=== PATIENT | male | born 1985 | race Caucasian/White ===

== ENCOUNTER 2016-12-04 12:42 | Inpatient (IN) | payer OTHER ==
[2016-12-04 13:43] VITALS: BMI 26.5
--- NOTE | 2016-12-04 16:40 | HP ---
CIWA Score - CIWA Score Nausea/Vomitin Muscle Tremors: 3 Anxiety: 3 Agitation: 3 Paroxysmal Sweats: 2 Orientation: 0-Oriented Tacttile Disturbances: 2-Mild Itch/Numbness/Burn Auditory Disturbances: 2-Mild Harshness/Frighten Visual Disturbances: 2-Mild Sensitivity Headache: 2-Mild CIWA-Ar Total Score: 22 Admission ROS BHS - HPI Chief Complaint: i need help to stop using xanax ,coaine,herroin dependence,mmtp 150 mgs/day, last medicated today Allergies/Adverse Reactions: Allergies Allergy/AdvReac Type Severity Reaction Status Date / Time No Known Allergies Allergy Verified 12/04/16 16:28 History of Present Illness: this 31 years old male with xanax and cocaine dependence,heroin dependence,mmtp 150 mgs/day,last mediated today,last detox [facility] in 2016 asthma hepatitis c weight loss longest period of sobriety 3 years - Ebola screening Have you traveled outside of the country in the last 21 days: No Have you had contact with anyone from an Ebola affected area: No Have you been sick,other than usual withdrawal symptoms: No Do you have a fever: No - Review of Systems Constitutional: See HPI, Chills, Loss of Appetite, Malaise, Night Sweats, Changes in sleep, Weakness, Unintentional Wgt. Loss EENT: reports: Tearing, Nose Congestion Respiratory: reports: No Symptoms reported, Other (asthma history) Cardiac: reports: No Symptoms Reported GI: reports: Diarrhea, Nausea, Vomiting, Abdominal cramping : reports: No Symptoms Reported Musculoskeletal: reports: Back Pain, Joint Pain, Muscle Pain, Joint Stiffness Integumentary: reports: Dryness Neuro: reports: Headache, Tremors Endocrine: reports: No Symptoms Reported Hematology: reports: No Symptoms Reported Psychiatric: reports: No Sypmtoms Reported, Judgement Intact, Mood/Affect Appropiate, Orientated x3 Patient History - Patient Medical History Hx Anemia: No Hx Asthma: Yes (childhood) Hx Chronic Obstructive Pulmonary Disease (COPD): No Hx Cancer: No Hx Cardiac Disorders: No Hx Congestive Heart Failure: No Hx Hypertension: No Hx Hypercholesterolemia: No Hx Pacemaker: No HX Cerebrovascular Accident: No Hx Seizures: No Hx Dementia: No Hx Diabetes: No Hx Gastrointestinal Disorders: No Hx Liver Disease: No Hx Genitourinary Disorders: No Hx Sexually Transmitted Disorders: No Hx Renal Disease (ESRD): No Hx Human Immunodeficiency Virus (HIV): No (last 2015) Hx Hepatitis C: Yes Hx Depression: No Hx Suicide Attempt: No Hx Bipolar Disorder: No Hx Schizophrenia: No Other Medical History: no suicidal,no homicidal - Patient Surgical History Past Surgical History: No - PPD History Previous Implant?: Yes Documented Results: Negative w/o proof Implanted On Prior [facility] Admission?: No PPD to be Administered?: Yes - Smoking Cessation Smoking history: Current every day smoker Have you smoked in the past 12 months: Yes Aproximately how many cigarettes per day: 10 Hx Chewing Tobacco Use: No Initiated information on smoking cessation: Yes 'Breaking Loose' booklet given: 12/05/16 - Substance & Tx. History Hx Alcohol Use: No Hx Substance Use: Yes Substance Use Type: Cocaine, Tranquilizers Hx Substance Use Treatment: Yes (last 2015) - Substances Abused Alprazolam (Xanax) Route: Oral Frequency: Daily Amount used: 4MG Age of first use: 17 Date of Last Use: 12/02/16 Cocaine Route: Injection Frequency: 3-6 times per week Amount used: $50-60 Age of first use: 17 Date of Last Use: 12/02/16 Heroin Route: Injection Frequency: 3-6 times per week Amount used: 4 Bags Age of first use: 17 Date of Last Use: 12/02/16 Family Disease History - Family Disease History Family History: Denies Admission Physical Exam BHS - Vital Signs Vital Signs: Vital Signs - 24 hr 12/04/16 13:23 Temperature 97.0 F L Pulse Rate 73 Respiratory 18 Rate Blood Pressure 100/73 - Physical General Appearance: Yes: Moderate Distress, Tremorous, Irritable, Sweating, Anxious HEENTM: Yes: Normal ENT Inspection, Normocephalic, ASHLEY Respiratory: Yes: Lungs Clear, Normal Breath Sounds, No Respiratory Distress Neck: Yes: Supple, Trachea in good position Breast: Yes: Within Normal Limits Cardiology: Yes: Within Normal Limits, Regular Rhythm, Regular Rate, S1, S2 Abdominal: Yes: Within Normal Limits, Normal Bowel Sounds, Non Tender, Flat, Soft Genitourinary: Yes: Within Normal Limits Back: Yes: Normal Inspection, Muscle Spasm Musculoskeletal: Yes: full range of Motion, Back pain, Joint Stiffness, Muscle Pain Extremities: Yes: Tremors Neurological: Yes: time clock inspector II-XII NML intact, Fully Oriented, Alert, Motor Strength 5/5 Integumentary: Yes: Dry Lymphatic: Yes: Within Normal Limits - Diagnostic (1) Uncomplicated sedative, hypnotic or anxiolytic withdrawal Current Visit: Yes Status: Acute (2) Cocaine dependence Current Visit: Yes Status: Acute (3) Heroin dependence Current Visit: Yes Status: Acute (4) Methadone maintenance therapy patient Current Visit: Yes Status: Acute (5) Asthma Current Visit: Yes Status: Acute (6) Hepatitis C Current Visit: Yes Status: Acute (7) Weight loss Current Visit: Yes Status: Acute Cleared for Admission S - Detox or Rehab S Level of Care: Medically Managed Detox Regimen/Protocol: Valium S Breath Alcohol Content Breath Alcohol Content: 0 Urine Drug Screen - Results Drug Screen Negative: No Urine Drug Screen Results: NICK-Cocaine, BZO-Benzodiazepines, MTD-Methadone, TCA- Tricyclic Antidepress
[2016-12-04] MEDS ORDERED: MENTHOL/PHENOL 1 EACH UD MM PRN (16:49)
[2016-12-04] MEDS ORDERED: NICOTINE POLACRILEX 2 MG GUM BC PRN (16:49)
[2016-12-04] MEDS ORDERED: MAGNESIUM CITRATE 300 ML BOTTLE PO PRN (16:49)
[2016-12-04] MEDS ORDERED: hydrOXYzine PAMOATE 50 MG CAPSULE (FP) PO PRN (16:49)
[2016-12-04] MEDS ORDERED: IBUPROFEN 400 MG TABLET (FP) PO PRN (16:49)
[2016-12-04] MEDS ORDERED: P-EPHED 60MG/TRIPROLIDI 2.5MG TABLET PO PRN (16:49)
[2016-12-04] MEDS ORDERED: ACETAMINOPHEN 325 MG TABLET (FP) PO PRN (16:49)
[2016-12-04] MEDS ORDERED: MAGNESIUM HYDROX 2400MG/30ML ORAL SUSPENSION 30 ML CUP PO PRN (16:49)
[2016-12-04] MEDS ORDERED: guaiFENesin/D-METHORPHAN HB 10 ML UNIT-DOSE CUPS PO PRN (16:49)
[2016-12-04] MEDS ORDERED: diazePAM 5 MG TABLET PO ONE (17:30)
[2016-12-04] MEDS: diazePAM 5 MG TABLET PO SCH (22:11)
[2016-12-04] MEDS: THIAMINE HCL 100 MG TABLET (FP) PO SCH (22:11)
[2016-12-04] MEDS: diphenhydrAMINE HCL 50 MG CAPSULE PO PRN (22:11)
[2016-12-05] MEDS: diazePAM 5 MG TABLET PO SCH ×3 (05:44→22:06)
[2016-12-05] MEDS ORDERED: METHADONE HCL 10 MG TABLET PO SCH (07:30)
[2016-12-05] MEDS ORDERED: METHADONE HCL 10 MG TABLET ONE (07:53)
[2016-12-05] MEDS ORDERED: METHADONE HCL 40 MG DISPERSABLE TABLET ONE (07:53)
[2016-12-05] MEDS: METHADONE 120 MG, METHADONE 30 MG PO SCH (07:56)
[2016-12-05 09:54] LABS: URINE APPEARANCE CLEAR; URINE BILIRUBIN NEGATIVE (NEGATIVE); URINE BLOOD NEGATIVE (NEGATIVE); URINE COLOR LTYELLOW; URINE GLUCOSE (UA) NEGATIVE (NEGATIVE); URINE KETONE NEGATIVE (NEGATIVE); URINE LEUK ESTERASE NEGATIVE (NEGATIVE); URINE NITRITE NEGATIVE (NEGATIVE); URINE PROTEIN NEGATIVE (NEGATIVE); URINE UROBILINOGEN NEGATIVE E.U./dl (0.2-1.0)
[2016-12-05 10:05] LABS: MCH 27.1 pg (25.7-33.7); MCHC 32.5 g/dl (32.0-35.9); MEAN CELL VOLUME 83.4 fl (80-96); MEAN PLT VOLUME 8.5 fl (7.5-11.1); PLATELET COUNT 194 K/MM3 (134-434); WHITE BLOOD COUNT 5.4 K/mm3 (4.0-10.0)
[2016-12-05] MEDS: PRENATAL VITAMINS W/ FOLIC ACID TABLET (FP) PO SCH (10:06)
[2016-12-05] MEDS: diazePAM 5 MG TABLET PO PRN (10:06)
[2016-12-05 10:46] LABS: ALK PHOS 105 U/L (45-117); ANION GAP 10 (8-16); BILIRUBIN,TOTAL 0.6 mg/dL (0.2-1.0); CALCIUM 9.4 mg/dL (8.5-10.1); CO2 26 mmol/L (21-32); COCKROFT - GAULT 114.44; CREATININE 0.9 mg/dL (0.7-1.3); GLUCOSE,RANDOM 95 mg/dL (74-106); SGOT/AST 31 U/L (15-37); SGPT/ALT 39 U/L (12-78)
--- NOTE | 2016-12-05 10:59 | EKG ---
Test Reason : Blood Pressure : / mmHG Vent. Rate : 061 BPM Atrial Rate : 061 BPM P-R Int : 140 ms QRS Dur : 104 ms QT Int : 428 ms P-R-T Axes : 003 072 048 degrees QTc Int : 430 ms NORMAL SINUS RHYTHM INCOMPLETE RIGHT BUNDLE BRANCH BLOCK BORDERLINE ECG NO PREVIOUS ECGS AVAILABLE Confirmed by LEIGH GUY MD ([id number]) on 12/05/2016 10:59:03 AM Referred By: Confirmed By:LEIGH GUY MD
--- NOTE | 2016-12-05 12:59 | PN ---
[facility] CIWA - CIWA Score Nausea/Vomitin-No Nausea/No Vomiting Muscle Tremors: 4-Moderate,w/Arms Extend Anxiety: 3 Agitation: 3 Paroxysmal Sweats: 3 Orientation: 0-Oriented Tacttile Disturbances: 0-None Auditory Disturbances: 0-None Visual Disturbances: 0-None Headache: 0-None Present CIWA-Ar Total Score: 13 S Progress Note (SOAP) Subjective: Sweating,anxiety,tremors,interrupted sleep,restless. Objective: 12/05/16 12:58 Vital Signs - 8 hr 12/05/16 12/05/16 06:09 09:10 Temperature 96.6 F L 97.5 F L Pulse Rate 67 80 Respiratory 18 18 Rate Blood Pressure 95/62 104/69 Laboratory Last Values WBC 5.4 K/mm3 (4.0-10.0) 12/05/16 06:00 RBC 4.88 M/mm3 (4.00-5.60) 12/05/16 06:00 Hgb 13.2 GM/dL (11.7-16.9) 12/05/16 06:00 Hct 40.7 % (35.4-49) 12/05/16 06:00 MCV 83.4 fl (80-96) 12/05/16 06:00 MCHC 32.5 g/dl (32.0-35.9) 12/05/16 06:00 RDW 15.0 % (11.9-15.9) 12/05/16 06:00 Plt Count 194 K/MM3 (134-434) 12/05/16 06:00 MPV 8.5 fl (7.5-11.1) 12/05/16 06:00 Sodium 138 mmol/L (136-145) 12/05/16 06:00 Potassium 4.6 mmol/L (3.5-5.1) 12/05/16 06:00 Chloride 102 mmol/L (98-107) 12/05/16 06:00 Carbon Dioxide 26 mmol/L (21-32) 12/05/16 06:00 Anion Gap 10 (8-16) 12/05/16 06:00 BUN 20 mg/dL (7-18) H 12/05/16 06:00 Creatinine 0.9 mg/dL (0.7-1.3) 12/05/16 06:00 Creat Clearance w eGFR > 60 (>60) 12/05/16 06:00 Random Glucose 95 mg/dL (74-106) 12/05/16 06:00 Calcium 9.4 mg/dL (8.5-10.1) 12/05/16 06:00 Total Bilirubin 0.6 mg/dL (0.2-1.0) 12/05/16 06:00 AST 31 U/L (15-37) 12/05/16 06:00 ALT 39 U/L (12-78) 12/05/16 06:00 Alkaline Phosphatase 105 U/L (45-117) 12/05/16 06:00 Total Protein 8.0 g/dl (6.4-8.2) 12/05/16 06:00 Albumin 4.0 g/dl (3.4-5.0) 12/05/16 06:00 Urine Color Ltyellow 12/05/16 08:00 Urine Appearance Clear 12/05/16 08:00 Urine pH 6.0 (5.0-8.0) 12/05/16 08:00 Urine Protein Negative (NEGATIVE) 12/05/16 08:00 Urine Glucose (UA) Negative (NEGATIVE) 12/05/16 08:00 Urine Ketones Negative (NEGATIVE) 12/05/16 08:00 Urine Blood Negative (NEGATIVE) 12/05/16 08:00 Urine Nitrite Negative (NEGATIVE) 12/05/16 08:00 Urine Bilirubin Negative (NEGATIVE) 12/05/16 08:00 Urine Urobilinogen Negative E.U./dl (0.2-1.0) 12/05/16 08:00 Ur Leukocyte Esterase Negative (NEGATIVE) 12/05/16 08:00 RPR Titer Nonreactive (NONREACTIVE) 12/05/16 06:00 labs noted Assessment: 12/05/16 12:58 Withdrawal sx. Plan: Continue detox
[2016-12-05] MEDS: THIAMINE HCL 100 MG TABLET (FP) PO SCH (22:06)
[2016-12-05] MEDS: diphenhydrAMINE HCL 50 MG CAPSULE PO PRN (22:06)
[2016-12-06] MEDS ORDERED: METHADONE HCL 10 MG TABLET ONE (04:55)
[2016-12-06] MEDS ORDERED: METHADONE HCL 40 MG DISPERSABLE TABLET ONE (04:56)
[2016-12-06] MEDS: diazePAM 5 MG TABLET PO PRN (05:35)
[2016-12-06] MEDS: LOPERAMIDE HCL 2 MG CAPSULE PO PRN (05:35)
[2016-12-06] MEDS: METHADONE 120 MG, METHADONE 30 MG PO SCH (05:35)
[2016-12-06] MEDS ORDERED: ONDANSETRON *ODT* 4 MG TABLET SL PRN (09:46)
[2016-12-06] MEDS: MAG HYDROX/AL HYDROX/SIMETH 30 ML UNIT-DOSE CUP PO PRN (10:22)
[2016-12-06] MEDS: PRENATAL VITAMINS W/ FOLIC ACID TABLET (FP) PO SCH (10:22)
[2016-12-06] MEDS: diazePAM 5 MG TABLET PO SCH ×2 (10:22→22:00)
--- NOTE | 2016-12-06 11:09 | PN ---
S CIWA - CIWA Score Nausea/Vomitin Muscle Tremors: 4-Moderate,w/Arms Extend Anxiety: 3 Agitation: 1-Slight > Activity Paroxysmal Sweats: 3 Orientation: 2-Disoriented Date<2 days Tacttile Disturbances: 0-None Auditory Disturbances: 0-None Visual Disturbances: 1-Very Mild Sensitivity Headache: 0-None Present CIWA-Ar Total Score: 19 BHS Progress Note (SOAP) Subjective: Vomiting, Tremors, Stomach Cramping, Interrupted sleep, Diarrhea, Sweating. Objective: PT. A & O X 2 (DISORIENTED ABOUT DAY / DATE). PT. OBSERVED AMBULATING ON UNIT. 12/06/16 11:08 Vital Signs Temperature 96.2 F L 12/06/16 09:16 Pulse Rate 97 H 12/06/16 09:16 Respiratory Rate 18 12/06/16 09:16 Blood Pressure 118/76 12/06/16 09:16 O2 Sat by Pulse Oximetry (%) Laboratory Tests 12/05/16 12/05/16 12/05/16 06:00 06:00 06:00 WBC 5.4 RBC 4.88 Hgb 13.2 Hct 40.7 MCV 83.4 MCHC 32.5 RDW 15.0 Plt Count 194 MPV 8.5 Sodium 138 Potassium 4.6 Chloride 102 Carbon Dioxide 26 Anion Gap 10 BUN 20 H Creatinine 0.9 Creat Clearance w eGFR > 60 Random Glucose 95 Calcium 9.4 Total Bilirubin 0.6 AST 31 ALT 39 Alkaline Phosphatase 105 Total Protein 8.0 Albumin 4.0 Urine Color Urine Appearance Urine pH Ur Specific [place] Urine Protein Urine Glucose (UA) Urine Ketones Urine Blood Urine Nitrite Urine Bilirubin Urine Urobilinogen Ur Leukocyte Esterase RPR Titer Nonreactive 12/05/16 08:00 WBC RBC Hgb Hct MCV MCHC RDW Plt Count MPV Sodium Potassium Chloride Carbon Dioxide Anion Gap BUN Creatinine Creat Clearance w eGFR Random Glucose Calcium Total Bilirubin AST ALT Alkaline Phosphatase Total Protein Albumin Urine Color Ltyellow Urine Appearance Clear Urine pH 6.0 Ur Specific [place] 1.020 Urine Protein Negative Urine Glucose (UA) Negative Urine Ketones Negative Urine Blood Negative Urine Nitrite Negative Urine Bilirubin Negative Urine Urobilinogen Negative Ur Leukocyte Esterase Negative RPR Titer LABS NOTED. Assessment: 12/06/16 11:08 WITHDRAWAL SYMPTOMS. Plan: CONTINUE DETOX. PRN ZOFRAN SL FOR VOMITING. INCREASE PO FLUID INTAKE.
[2016-12-06] MEDS: diphenhydrAMINE HCL 50 MG CAPSULE PO PRN (22:00)
[2016-12-06] MEDS: THIAMINE HCL 100 MG TABLET (FP) PO SCH (22:00)
[2016-12-07] MEDS ORDERED: METHADONE HCL 10 MG TABLET ONE (04:02)
[2016-12-07] MEDS ORDERED: METHADONE HCL 40 MG DISPERSABLE TABLET ONE (04:02)
[2016-12-07] MEDS: METHADONE 120 MG, METHADONE 30 MG PO SCH (05:54)
[2016-12-07] MEDS: diazePAM 5 MG TABLET PO PRN ×2 (05:54→11:19)
[2016-12-07] MEDS: LOPERAMIDE HCL 2 MG CAPSULE PO PRN (05:55)
[2016-12-07] MEDS: MAG HYDROX/AL HYDROX/SIMETH 30 ML UNIT-DOSE CUP PO PRN (08:55)
[2016-12-07] MEDS: diazePAM 5 MG TABLET PO SCH ×2 (10:06→22:08)
[2016-12-07] MEDS: PRENATAL VITAMINS W/ FOLIC ACID TABLET (FP) PO SCH (10:06)
--- NOTE | 2016-12-07 13:09 | PN ---
BHS Progress Note (SOAP) Subjective: Vomiting, Diarrhea, Stomach Cramping, Tremors. Objective: PT. A & O X 3, OBSERVED AMBULATING ON UNIT. NO ACUTE DISTRESS. 12/07/16 13:07 Vital Signs Temperature 97.7 F 12/07/16 12:55 Pulse Rate 96 H 12/07/16 12:55 Respiratory Rate 20 12/07/16 12:55 Blood Pressure 99/66 12/07/16 12:55 O2 Sat by Pulse Oximetry (%) Laboratory Tests 12/05/16 12/05/16 12/05/16 06:00 06:00 06:00 WBC 5.4 RBC 4.88 Hgb 13.2 Hct 40.7 MCV 83.4 MCHC 32.5 RDW 15.0 Plt Count 194 MPV 8.5 Sodium 138 Potassium 4.6 Chloride 102 Carbon Dioxide 26 Anion Gap 10 BUN 20 H Creatinine 0.9 Creat Clearance w eGFR > 60 Random Glucose 95 Calcium 9.4 Total Bilirubin 0.6 AST 31 ALT 39 Alkaline Phosphatase 105 Total Protein 8.0 Albumin 4.0 Urine Color Urine Appearance Urine pH Ur Specific [place] Urine Protein Urine Glucose (UA) Urine Ketones Urine Blood Urine Nitrite Urine Bilirubin Urine Urobilinogen Ur Leukocyte Esterase RPR Titer Nonreactive 12/05/16 08:00 WBC RBC Hgb Hct MCV MCHC RDW Plt Count MPV Sodium Potassium Chloride Carbon Dioxide Anion Gap BUN Creatinine Creat Clearance w eGFR Random Glucose Calcium Total Bilirubin AST ALT Alkaline Phosphatase Total Protein Albumin Urine Color Ltyellow Urine Appearance Clear Urine pH 6.0 Ur Specific [place] 1.020 Urine Protein Negative Urine Glucose (UA) Negative Urine Ketones Negative Urine Blood Negative Urine Nitrite Negative Urine Bilirubin Negative Urine Urobilinogen Negative Ur Leukocyte Esterase Negative RPR Titer LABS NOTED. Assessment: 12/07/16 13:08 WITHDRAWAL SYMPTOMS. Plan: CONTINUE DETOX. INCREASE PO FLUID INTAKE.
[2016-12-07] MEDS: THIAMINE HCL 100 MG TABLET (FP) PO SCH (22:08)
[2016-12-07] MEDS: diphenhydrAMINE HCL 50 MG CAPSULE PO PRN (22:08)
[2016-12-08] MEDS ORDERED: METHADONE HCL 10 MG TABLET ONE (01:31)
[2016-12-08] MEDS ORDERED: METHADONE HCL 40 MG DISPERSABLE TABLET ONE (01:31)
[2016-12-08] MEDS: METHADONE 120 MG, METHADONE 30 MG PO SCH (05:22)
[2016-12-08 06:08] VITALS: PULSE 81; TEMP 97.4
[2016-12-08] MEDS: LOPERAMIDE HCL 2 MG CAPSULE PO PRN (06:28)
[2016-12-08 09:39] VITALS: BP 99/73
[2016-12-08] MEDS ORDERED: diazePAM 5 MG TABLET PO SCH (10:00)
[2016-12-08] MEDS: PRENATAL VITAMINS W/ FOLIC ACID TABLET (FP) PO SCH (10:18)
[2016-12-08] MEDS: MAG HYDROX/AL HYDROX/SIMETH 30 ML UNIT-DOSE CUP PO PRN (11:21)
--- NOTE | 2016-12-08 13:11 | DS ---
[facility] Detox Discharge Summary Admission Date: 12/04/16 Discharge Date: 12/08/16 - History Present History: Cocaine Dependence, Opioid Dependence, Sedative Dependence, MMTP Additional Comments: ADVISED PATIENT TO FOLLOW-UP WITH PRICING CLERK / REHAB MEDICAL PROVIDER AFTER DISCHARGE FROM DETOX FOR GENERAL MEDICAL ASSESSMENT. Pertinent Past History: Hepatitis C, Asthma (Childhood), MMTP. - Physical Exam Results Vital Signs: Vital Signs Temperature 97.4 F L 12/08/16 09:39 Pulse Rate 81 12/08/16 09:39 Respiratory Rate 18 12/08/16 09:39 Blood Pressure 99/73 12/08/16 09:39 O2 Sat by Pulse Oximetry (%) Pertinent Admission Physical Exam Findings: WITHDRAWAL SYMPTOMS. Laboratory Tests 12/05/16 12/05/16 12/05/16 06:00 06:00 06:00 WBC 5.4 RBC 4.88 Hgb 13.2 Hct 40.7 MCV 83.4 MCHC 32.5 RDW 15.0 Plt Count 194 MPV 8.5 Sodium 138 Potassium 4.6 Chloride 102 Carbon Dioxide 26 Anion Gap 10 BUN 20 H Creatinine 0.9 Creat Clearance w eGFR > 60 Random Glucose 95 Calcium 9.4 Total Bilirubin 0.6 AST 31 ALT 39 Alkaline Phosphatase 105 Total Protein 8.0 Albumin 4.0 Urine Color Urine Appearance Urine pH Ur Specific [place] Urine Protein Urine Glucose (UA) Urine Ketones Urine Blood Urine Nitrite Urine Bilirubin Urine Urobilinogen Ur Leukocyte Esterase RPR Titer Nonreactive 12/05/16 08:00 WBC RBC Hgb Hct MCV MCHC RDW Plt Count MPV Sodium Potassium Chloride Carbon Dioxide Anion Gap BUN Creatinine Creat Clearance w eGFR Random Glucose Calcium Total Bilirubin AST ALT Alkaline Phosphatase Total Protein Albumin Urine Color Ltyellow Urine Appearance Clear Urine pH 6.0 Ur Specific [place] 1.020 Urine Protein Negative Urine Glucose (UA) Negative Urine Ketones Negative Urine Blood Negative Urine Nitrite Negative Urine Bilirubin Negative Urine Urobilinogen Negative Ur Leukocyte Esterase Negative RPR Titer LABS NOTED. - Treatment Hospital Course: Detox Protocol Followed, Detoxed Safely, Responded well, Discharged Condition Good, Rehab Referral Accepted Patient has Accepted a Rehab Referral to: [facility]. - Medication Discharge Medications: Ambulatory Orders NK [No Known Home Medication] 12/04/16 - Diagnosis (1) Asthma Current Visit: Yes Status: Chronic Qualifiers: Asthma severity: mild intermittent Asthma complication type: uncomplicated Qualified Code(s): J45.20 - Mild intermittent asthma, uncomplicated (2) Cocaine dependence Current Visit: Yes Status: Acute Qualifiers: Substance use status: uncomplicated Qualified Code(s): F14.20 - Cocaine dependence, uncomplicated (3) Hepatitis C Current Visit: Yes Status: Chronic Qualifiers: Viral hepatitis chronicity: chronic Hepatic coma status: without hepatic coma Qualified Code(s): B18.2 - Chronic viral hepatitis C (4) Heroin dependence Current Visit: Yes Status: Acute (5) Methadone maintenance therapy patient Current Visit: Yes Status: Chronic (6) Uncomplicated sedative, hypnotic or anxiolytic withdrawal Current Visit: Yes Status: Acute (7) Weight loss Current Visit: Yes Status: Acute - AMA Did Patient Leave Against Medical Advice: No
== END 2016-12-08 13:17 | disposition home or self-care (01) | DRG 773 ==
LOC: YASAS 12:42 → Y3N 17:06
PROVIDERS: ADMIT Internal Medicine; ATTEND Internal Medicine
PROC: HZ2ZZZZ Detoxification Services for Substance Abuse Treatment (ICD-10-PCS; principal; 2016-12-04)
DX: F13.230 Sedative, hypnotic or anxiolytic dependence with withdrawal, uncomplicated (principal); F11.20 Opioid dependence, uncomplicated; F14.20 Cocaine dependence, uncomplicated; F17.210 Nicotine dependence, cigarettes, uncomplicated; J45.20 Mild intermittent asthma, uncomplicated; B18.2 Chronic viral hepatitis C; Z87.898 Personal history of other specified conditions
CPT/HCPCS: 36415; 80053; 81003; 85027; 86593; 93005; 93010

== ENCOUNTER 2017-02-20 14:15 | Inpatient (IN) | payer OTHER ==
[2017-02-20 14:57] VITALS: BMI 28.0
--- NOTE | 2017-02-20 15:09 | HP ---
CIWA Score - CIWA Score Nausea/Vomitin Muscle Tremors: 3 Anxiety: 3 Agitation: 3 Paroxysmal Sweats: 1-Minimal Palms Moist Orientation: 0-Oriented Tacttile Disturbances: 1-Very Mild Itch/Numbness Auditory Disturbances: 1-Very Mild Visual Disturbances: 0-None Headache: 2-Mild CIWA-Ar Total Score: 17 Admission ROS BHS - HPI Chief Complaint: i need help to stop drinkig alcohol,xanax,mmtp 150 mgs/day Allergies/Adverse Reactions: Allergies Allergy/AdvReac Type Severity Reaction Status Date / Time No Known Allergies Allergy Verified 02/20/17 14:57 History of Present Illness: 31 years old male with alcohol,cocaine xanax dependence,mmtp 150 mgs/day,last medicated today last treatment 12/04/16 to 12/08/16 hepatitis c weight loss longest period of sobriety 3 and a half year multiple admissions in the past Exam Limitations: No Limitations - Ebola screening Have you traveled outside of the country in the last 21 days: No Have you had contact with anyone from an Ebola affected area: No Have you been sick,other than usual withdrawal symptoms: No - Review of Systems Constitutional: Loss of Appetite, Malaise, Night Sweats, Changes in sleep, Unintentional Wgt. Loss EENT: reports: Tearing, Nose Congestion Respiratory: reports: No Symptoms reported, Other (asthma) Cardiac: reports: Palpitations GI: reports: Vomiting, Abdominal cramping : reports: No Symptoms Reported Musculoskeletal: reports: Back Pain, Muscle Pain Integumentary: reports: Dryness Neuro: reports: Headache, Tremors Endocrine: reports: No Symptoms Reported Hematology: reports: No Symptoms Reported Psychiatric: reports: No Sypmtoms Reported, Judgement Intact, Mood/Affect Appropiate, Depressed Patient History - Patient Medical History Hx Anemia: No Hx Asthma: Yes (childhood) Hx Chronic Obstructive Pulmonary Disease (COPD): No Hx Cancer: No Hx Cardiac Disorders: No Hx Congestive Heart Failure: No Hx Hypertension: No Hx Hypercholesterolemia: No Hx Pacemaker: No HX Cerebrovascular Accident: No Hx Seizures: No Hx Dementia: No Hx Diabetes: No Hx Gastrointestinal Disorders: No Hx Liver Disease: No Hx Genitourinary Disorders: No Hx Sexually Transmitted Disorders: No Hx Renal Disease (ESRD): No Hx Human Immunodeficiency Virus (HIV): No (last 2015) Hx Hepatitis C: Yes Hx Depression: No Hx Suicide Attempt: No Hx Bipolar Disorder: No Hx Schizophrenia: No Other Medical History: no suicidal,no homicidal - Patient Surgical History Past Surgical History: No - PPD History Previous Implant?: Yes Documented Results: Negative w/proof Date: 12/06/16 Results: 0 mm PPD to be Administered?: No - Smoking Cessation Smoking history: Current every day smoker Have you smoked in the past 12 months: Yes Aproximately how many cigarettes per day: 10 Hx Chewing Tobacco Use: No Initiated information on smoking cessation: Yes 'Breaking Loose' booklet given: 02/20/17 - Substance & Tx. History Hx Alcohol Use: Yes Hx Substance Use: Yes Substance Use Type: Alcohol, Cocaine, Tranquilizers - Substances Abused Alprazolam (Xanax) Route: Oral Frequency: Daily Amount used: 4MG Age of first use: 17 Date of Last Use: 02/18/17 Alcohol Route: Oral Frequency: Daily Amount used: 4-5 20 BEERS Age of first use: 17 Date of Last Use: 02/18/17 Cocaine Route: Injection Frequency: Daily Amount used: $50-60 Age of first use: 20 Date of Last Use: 02/19/17 Family Disease History - Family Disease History Family History: Denies Admission Physical Exam S - Vital Signs Vital Signs: Vital Signs - 24 hr 02/20/17 14:55 Temperature 97.0 F L Pulse Rate 79 Respiratory 18 Rate Blood Pressure 103/60 - Physical General Appearance: Yes: Moderate Distress, Tremorous, Irritable, Sweating, Anxious HEENTM: Yes: Normal ENT Inspection, ASHLEY, Pharynx Normal Respiratory: Yes: Lungs Clear, Normal Breath Sounds, No Respiratory Distress Neck: Yes: Within Normal Limits, Supple, Trachea in good position Breast: Yes: Within Normal Limits Cardiology: Yes: Within Normal Limits, Regular Rhythm, Regular Rate, S1, S2 Abdominal: Yes: Within Normal Limits, Normal Bowel Sounds, Non Tender, Flat, Soft Genitourinary: Yes: Within Normal Limits Back: Yes: Muscle Spasm Musculoskeletal: Yes: Within Normal Limits, Back pain, Muscle Pain Extremities: Yes: Within Normal Limits, Normal Range of Motion, Tremors Neurological: Yes: rotary surface grinder II-XII NML intact, Alert, Motor Strength 5/5 Integumentary: Yes: Dry Lymphatic: Yes: Within Normal Limits - Diagnostic (1) Cocaine dependence Current Visit: Yes Status: Chronic Qualifiers: Substance use status: uncomplicated Qualified Code(s): F14.20 - Cocaine dependence, uncomplicated (2) Uncomplicated sedative, hypnotic or anxiolytic withdrawal Current Visit: Yes Status: Chronic (3) Weight loss Current Visit: No Status: Acute (4) Asthma Current Visit: Yes Status: Chronic Qualifiers: Asthma severity: mild intermittent Asthma complication type: uncomplicated Qualified Code(s): J45.20 - Mild intermittent asthma, uncomplicated (5) Methadone maintenance therapy patient Current Visit: Yes Status: Chronic (6) Alcohol dependence with uncomplicated withdrawal Current Visit: Yes Status: Chronic Cleared for Admission BHS - Detox or Rehab S Level of Care: Medically Managed Detox Regimen/Protocol: Valium BHS Breath Alcohol Content Breath Alcohol Content: 0 Urine Drug Screen - Results Drug Screen Negative: No Urine Drug Screen Results: NICK-Cocaine, BZO-Benzodiazepines, MTD-Methadone
[2017-02-20] MEDS ORDERED: guaiFENesin/D-METHORPHAN HB 10 ML UNIT-DOSE CUPS PO PRN (15:26)
[2017-02-20] MEDS ORDERED: P-EPHED 60MG/TRIPROLIDI 2.5MG TABLET PO PRN (15:26)
[2017-02-20] MEDS ORDERED: ACETAMINOPHEN 325 MG TABLET (FP) PO PRN (15:26)
[2017-02-20] MEDS ORDERED: MAGNESIUM CITRATE 300 ML BOTTLE PO PRN (15:26)
[2017-02-20] MEDS ORDERED: IBUPROFEN 400 MG TABLET (FP) PO PRN (15:26)
[2017-02-20] MEDS ORDERED: diazePAM 5 MG TABLET PO ONE (15:26)
[2017-02-20] MEDS ORDERED: MAGNESIUM HYDROX 2400MG/30ML ORAL SUSPENSION 30 ML CUP PO PRN (15:26)
[2017-02-20] MEDS ORDERED: LOPERAMIDE HCL 2 MG CAPSULE PO PRN (15:26)
[2017-02-20] MEDS ORDERED: hydrOXYzine PAMOATE 50 MG CAPSULE (FP) PO PRN (15:26)
[2017-02-20] MEDS ORDERED: MENTHOL/PHENOL 1 EACH UD MM PRN (15:26)
[2017-02-20] MEDS: diazePAM 5 MG TABLET PO PRN (17:41)
[2017-02-20 22:10] LABS: URINE APPEARANCE SLCLOUDY; URINE BILIRUBIN NEGATIVE (NEGATIVE); URINE BLOOD NEGATIVE (NEGATIVE); URINE COLOR YELLOW; URINE GLUCOSE (UA) NEGATIVE (NEGATIVE); URINE KETONE NEGATIVE (NEGATIVE); URINE LEUK ESTERASE NEGATIVE (NEGATIVE); URINE NITRITE NEGATIVE (NEGATIVE); URINE PROTEIN NEGATIVE (NEGATIVE)
[2017-02-20] MEDS: diazePAM 5 MG TABLET PO SCH (22:12)
[2017-02-20] MEDS: THIAMINE HCL 100 MG TABLET (FP) PO SCH (22:12)
[2017-02-20] MEDS: diphenhydrAMINE HCL 50 MG CAPSULE PO PRN (22:13)
[2017-02-21] MEDS: diazePAM 5 MG TABLET PO SCH ×3 (05:44→22:16)
--- NOTE | 2017-02-21 09:50 | PN ---
S CIWA - CIWA Score Nausea/Vomitin-No Nausea/No Vomiting Muscle Tremors: 4-Moderate,w/Arms Extend Anxiety: 3 Agitation: 4-Moderately Restless Paroxysmal Sweats: 3 Orientation: 0-Oriented Tacttile Disturbances: 0-None Auditory Disturbances: 0-None Visual Disturbances: 0-None Headache: 1-Very Mild CIWA-Ar Total Score: 15 BHS Progress Note (SOAP) Subjective: agitation anxiety sweats interrupted sleep nausea low appetite Objective: 02/21/17 09:48 Vital Signs Temperature 96.4 F 02/21/17 10:00 Pulse Rate 75 02/21/17 10:00 Respiratory Rate 18 02/21/17 10:00 Blood Pressure 117/74 02/21/17 10:00 O2 Sat by Pulse Oximetry (%) Laboratory Tests 02/20/17 21:30 Urine Color Yellow Urine Appearance Slcloudy Urine pH 7.0 Urine Protein Negative Urine Glucose (UA) Negative Urine Ketones Negative Urine Blood Negative Urine Nitrite Negative Urine Bilirubin Negative Urine Urobilinogen 2.0 Ur Leukocyte Esterase Negative rest of labs pending awake/alert ambulating no acute distress Assessment: 02/21/17 09:55 withdrawal sx Plan: continue detox increase fluids ensure plus BID f/u pending labs
--- NOTE | 2017-02-21 09:59 | CONSULT ---
[facility] Psychiatric Consult - Data Date of interview: 02/21/17 Admission source: [facility] Identifying data: This is 31 years old male with no psychiatric hospitalization history intoxicated with: Alcohol, Cocaine, Heroin and Xanax Substance Abuse History: Smoking history: Current every day smoker. Have you smoked in the past 12 months: Yes. Aproximately how many cigarettes per day: 10. Hx Chewing Tobacco Use: No. Initiated information on smoking cessation: Yes. 'Breaking Loose' booklet given: 02/20/17. - Substance & Tx. History. Hx Alcohol Use: Yes. Hx Substance Use: Yes. Substance Use Type: Alcohol, Cocaine , Tranquilizers. - Substances Abused. Alprazolam (Xanax). Route: Oral. Frequency: Daily. Amount used: 4MG. Age of first use: 17. Date of Last Use: 02/18/17. Alcohol. Route: Oral. Frequency: Daily. Amount used: 4-5 20 BEERS. Age of first use: 17. Date of Last Use: 02/18/17. Cocaine. Route: Injection. Frequency: Daily. Amount used: $50-60. Age of first use: 20. Date of Last Use: 02/19/17 Medical History: Weight loss, Asthma, HepC+,MHistory of MMTP Psychiatric History: Patiejnt reports history of depression and aqnxiety, insomnia, reports taking priorm to admission: Remeron 15mg po qhs with good response. Physical/Sexual Abuse/Trauma History: Denies Additional Comment: Remeron 15mg po qhs Mental Status Exam - Mental Status Exam Alert and Oriented to: Person Cognitive Function: Fair Patient Appearance: Unkempt Mood: Anxious Affect: Mood Congruent Patient Behavior: Cooperative Speech Pattern: Appropriate Voice Loudness: Mildly Soft/Quiet Thought Process: Goal Oriented Thought Disorder: Being Controlled Hallucinations: Denies Suicidal Ideation: Denies Homicidal Ideation: Denies Insight/Judgement: Fair Sleep: Difficulty falling asleep Appetite: Weight loss Muscle strength/Tone: Normal Gait/Station: Normal Additional Comments: Remeron 15mg po qhs Psychiatric Findings - Problem List ([place] 1, 2,3) (1) Alcohol dependence with uncomplicated withdrawal Current Visit: Yes Status: Chronic (2) Cocaine dependence Current Visit: Yes Status: Chronic Qualifiers: Substance use status: uncomplicated Qualified Code(s): F14.20 - Cocaine dependence, uncomplicated (3) Methadone maintenance therapy patient Current Visit: Yes Status: Chronic (4) Uncomplicated sedative, hypnotic or anxiolytic withdrawal Current Visit: Yes Status: Chronic (5) Heroin dependence Current Visit: No Status: Acute (6) Drug-induced mood disorder Current Visit: Yes Status: Acute - Initial Treatment Plan Initial Treatment Plan: Remeron 15mg po qhs
[2017-02-21 10:04] LABS: MCHC 32.4 g/dl (32.0-35.9); MEAN CELL VOLUME 83.5 fl (80-96); MEAN PLT VOLUME 7.8 fl (7.5-11.1); PLATELET COUNT 163 K/MM3 (134-434); RDW 14.7 % (11.9-15.9); WHITE BLOOD COUNT 4.9 K/mm3 (4.0-10.0)
[2017-02-21] MEDS: NICOTINE 21 MG/24 HOURS TOPICAL PATCH TD SCH (10:11)
[2017-02-21] MEDS: PRENATAL VITAMINS W/ FOLIC ACID TABLET (FP) PO SCH (10:11)
[2017-02-21 10:29] LABS: ALBUMIN 3.7 g/dl (3.4-5.0); ANION GAP 4 (8-16); CALCIUM 9.3 mg/dL (8.5-10.1); CO2 31 mmol/L (21-32); GLUCOSE,RANDOM 73 mg/dL (74-106); SGPT/ALT 49 U/L (12-78)
[2017-02-21 10:32] LABS: ALK PHOS 144 U/L (45-117); BILIRUBIN,TOTAL 0.3 mg/dL (0.2-1.0); CREATININE 0.8 mg/dL (0.7-1.3); SGOT/AST 35 U/L (15-37); TOT PROT 7.7 g/dl (6.4-8.2)
[2017-02-21] MEDS ORDERED: METHADONE HCL 10 MG TABLET PO ONE (11:47)
[2017-02-21] MEDS ORDERED: METHADONE HCL 40 MG DISPERSABLE TABLET ONE (12:17)
[2017-02-21] MEDS ORDERED: METHADONE HCL 10 MG TABLET ONE (12:18)
[2017-02-21] MEDS ORDERED: METHADONE 120 MG, METHADONE 30 MG PO ONE (12:30)
--- NOTE | 2017-02-21 12:43 | EKG ---
Test Reason : Blood Pressure : / mmHG Vent. Rate : 062 BPM Atrial Rate : 062 BPM P-R Int : 152 ms QRS Dur : 102 ms QT Int : 404 ms P-R-T Axes : 003 051 038 degrees QTc Int : 410 ms NORMAL SINUS RHYTHM NORMAL ECG WHEN COMPARED WITH ECG OF 04-DEC-2016 17:50, INCOMPLETE RIGHT BUNDLE BRANCH BLOCK IS NO LONGER PRESENT Confirmed by BRIANNE EL, PHYLLIS ([id number]) on 02/21/2017 12:43:10 PM Referred By: Garfield Woodruff Confirmed By:PHYLLIS DECKER MD
[2017-02-21] MEDS: MAG HYDROX/AL HYDROX/SIMETH 30 ML UNIT-DOSE CUP PO PRN (16:42)
[2017-02-21] MEDS: diazePAM 5 MG TABLET PO PRN (17:08)
[2017-02-21] MEDS: MIRTAZAPINE 15 MG TABLET (FP) PO SCH (22:16)
[2017-02-21] MEDS: diphenhydrAMINE HCL 50 MG CAPSULE PO PRN (22:16)
[2017-02-21] MEDS: THIAMINE HCL 100 MG TABLET (FP) PO SCH (22:16)
[2017-02-22] MEDS ORDERED: METHADONE HCL 40 MG DISPERSABLE TABLET ONE (05:09)
[2017-02-22] MEDS ORDERED: METHADONE HCL 10 MG TABLET ONE (05:09)
[2017-02-22] MEDS: METHADONE 120 MG, METHADONE 30 MG PO SCH (05:15)
[2017-02-22] MEDS ORDERED: METHADONE HCL 10 MG TABLET PO SCH (06:00)
[2017-02-22] MEDS: diazePAM 5 MG TABLET PO PRN ×2 (07:47→18:23)
[2017-02-22] MEDS: diazePAM 5 MG TABLET PO SCH ×2 (10:06→22:25)
[2017-02-22] MEDS: PRENATAL VITAMINS W/ FOLIC ACID TABLET (FP) PO SCH (10:06)
[2017-02-22] MEDS: NICOTINE 21 MG/24 HOURS TOPICAL PATCH TD SCH (10:06)
--- NOTE | 2017-02-22 10:27 | PN ---
[facility] CIWA - CIWA Score Nausea/Vomitin-No Nausea/No Vomiting Muscle Tremors: 4-Moderate,w/Arms Extend Anxiety: 3 Agitation: 3 Paroxysmal Sweats: 3 Orientation: 0-Oriented Tacttile Disturbances: 0-None Auditory Disturbances: 0-None Visual Disturbances: 0-None Headache: 0-None Present CIWA-Ar Total Score: 13 S Progress Note (SOAP) Subjective: acid reflux sweats interrupted sleep anxiety Objective: 02/22/17 10:26 Vital Signs Temperature 97.9 F 02/22/17 09:36 Pulse Rate 84 02/22/17 09:36 Respiratory Rate 18 02/22/17 09:36 Blood Pressure 108/71 02/22/17 09:36 O2 Sat by Pulse Oximetry (%) Laboratory Tests 02/20/17 02/21/17 02/21/17 21:30 07:00 07:00 WBC 4.9 RBC 5.05 Hgb 13.7 Hct 42.2 MCV 83.5 MCH 27.0 MCHC 32.4 RDW 14.7 Plt Count 163 MPV 7.8 Sodium 140 Potassium 4.6 Chloride 105 Carbon Dioxide 31 Anion Gap 4 L BUN 15 D Creatinine 0.8 Creat Clearance w eGFR > 60 Random Glucose 73 L D Calcium 9.3 Total Bilirubin 0.3 D AST 35 ALT 49 D Alkaline Phosphatase 144 H D Total Protein 7.7 Albumin 3.7 Urine Color Yellow Urine Appearance Slcloudy Urine pH 7.0 Ur Specific [place] 1.015 Urine Protein Negative Urine Glucose (UA) Negative Urine Ketones Negative Urine Blood Negative Urine Nitrite Negative Urine Bilirubin Negative Urine Urobilinogen 2.0 Ur Leukocyte Esterase Negative RPR Titer 02/21/17 07:00 WBC RBC Hgb Hct MCV MCH MCHC RDW Plt Count MPV Sodium Potassium Chloride Carbon Dioxide Anion Gap BUN Creatinine Creat Clearance w eGFR Random Glucose Calcium Total Bilirubin AST ALT Alkaline Phosphatase Total Protein Albumin Urine Color Urine Appearance Urine pH Ur Specific [place] Urine Protein Urine Glucose (UA) Urine Ketones Urine Blood Urine Nitrite Urine Bilirubin Urine Urobilinogen Ur Leukocyte Esterase RPR Titer Nonreactive awake/alert ambulating no acute distress Assessment: 02/22/17 10:27 withdrawal sx Plan: continue detox increase fluids protonix 40mg daily
[2017-02-22] MEDS ORDERED: PANTOPRAZOLE 40 MG TABLET (FP) PO ONE (11:00)
[2017-02-22] MEDS: NICOTINE POLACRILEX 4 MG GUM BUC PRN ×2 (11:00→15:32)
[2017-02-22] MEDS: THIAMINE HCL 100 MG TABLET (FP) PO SCH (22:25)
[2017-02-22] MEDS: MIRTAZAPINE 15 MG TABLET (FP) PO SCH (22:25)
[2017-02-22] MEDS: MAG HYDROX/AL HYDROX/SIMETH 30 ML UNIT-DOSE CUP PO PRN (22:27)
[2017-02-23] MEDS ORDERED: METHADONE HCL 10 MG TABLET ONE (04:04)
[2017-02-23] MEDS ORDERED: METHADONE HCL 40 MG DISPERSABLE TABLET ONE (04:04)
[2017-02-23] MEDS: METHADONE 120 MG, METHADONE 30 MG PO SCH (05:43)
[2017-02-23] MEDS: diazePAM 5 MG TABLET PO SCH ×2 (10:13→22:03)
[2017-02-23] MEDS: PRENATAL VITAMINS W/ FOLIC ACID TABLET (FP) PO SCH (10:13)
[2017-02-23] MEDS: PANTOPRAZOLE 40 MG TABLET (FP) PO SCH (10:13)
[2017-02-23] MEDS: NICOTINE 21 MG/24 HOURS TOPICAL PATCH TD SCH (10:14)
[2017-02-23] MEDS: NICOTINE POLACRILEX 4 MG GUM BUC PRN (10:15)
[2017-02-23] MEDS: THIAMINE HCL 100 MG TABLET (FP) PO SCH (22:03)
[2017-02-23] MEDS: diphenhydrAMINE HCL 50 MG CAPSULE PO PRN (22:03)
[2017-02-23] MEDS: MIRTAZAPINE 15 MG TABLET (FP) PO SCH (22:03)
[2017-02-24] MEDS ORDERED: METHADONE HCL 40 MG DISPERSABLE TABLET ONE (05:26)
[2017-02-24] MEDS ORDERED: METHADONE HCL 10 MG TABLET ONE (05:27)
[2017-02-24] MEDS: METHADONE 120 MG, METHADONE 30 MG PO SCH (05:47)
--- NOTE | 2017-02-24 09:53 | PN ---
[facility] Progress Note (SOAP) Subjective: no complaints Objective: 02/24/17 09:52 Vital Signs - 24 hr 02/23/17 02/23/17 02/23/17 10:00 14:00 18:29 Temperature 97.9 F 98.1 F 97.7 F Pulse Rate 76 83 79 Respiratory 18 18 18 Rate Blood Pressure 113/73 124/73 92/45 02/23/17 02/24/17 02/24/17 21:18 03:30 06:00 Temperature 98.1 F 97.7 F Pulse Rate 81 87 Respiratory 18 18 16 Rate Blood Pressure 108/63 108/70 Laboratory Tests 02/20/17 02/21/17 02/21/17 21:30 07:00 07:00 WBC 4.9 RBC 5.05 Hgb 13.7 Hct 42.2 MCV 83.5 MCH 27.0 MCHC 32.4 RDW 14.7 Plt Count 163 MPV 7.8 Sodium 140 Potassium 4.6 Chloride 105 Carbon Dioxide 31 Anion Gap 4 L BUN 15 D Creatinine 0.8 Creat Clearance w eGFR > 60 Random Glucose 73 L D Calcium 9.3 Total Bilirubin 0.3 D AST 35 ALT 49 D Alkaline Phosphatase 144 H D Total Protein 7.7 Albumin 3.7 Urine Color Yellow Urine Appearance Slcloudy Urine pH 7.0 Ur Specific [place] 1.015 Urine Protein Negative Urine Glucose (UA) Negative Urine Ketones Negative Urine Blood Negative Urine Nitrite Negative Urine Bilirubin Negative Urine Urobilinogen 2.0 Ur Leukocyte Esterase Negative RPR Titer 02/21/17 07:00 WBC RBC Hgb Hct MCV MCH MCHC RDW Plt Count MPV Sodium Potassium Chloride Carbon Dioxide Anion Gap BUN Creatinine Creat Clearance w eGFR Random Glucose Calcium Total Bilirubin AST ALT Alkaline Phosphatase Total Protein Albumin Urine Color Urine Appearance Urine pH Ur Specific [place] Urine Protein Urine Glucose (UA) Urine Ketones Urine Blood Urine Nitrite Urine Bilirubin Urine Urobilinogen Ur Leukocyte Esterase RPR Titer Nonreactive Assessment: medically stable Plan: detox complted, d/c today
--- NOTE | 2017-02-24 09:55 | DS ---
[facility] Detox Discharge Summary Admission Date: 02/20/17 Discharge Date: 02/24/17 - History Present History: Alcohol Dependence, Cocaine Dependence, Opioid Dependence, Sedative Dependence Pertinent Past History: nicotine dependence, insomnia, anxiety, depression, hep c asthma - Physical Exam Results Vital Signs: Vital Signs Temperature 97.7 F 02/24/17 06:00 Pulse Rate 87 02/24/17 06:00 Respiratory Rate 16 02/24/17 06:00 Blood Pressure 108/70 02/24/17 06:00 O2 Sat by Pulse Oximetry (%) Pertinent Admission Physical Exam Findings: Yes - Treatment Hospital Course: Detox Protocol Followed, Detoxed Safely, Responded well, Discharged Condition Good, Rehab Referral Accepted - Medication Discharge Medications: Ambulatory Orders Mirtazapine [Remeron -] 15 mg PO HS #30 tablet 02/21/17 - Diagnosis (1) Drug-induced mood disorder Current Visit: Yes Status: Acute (2) Alcohol dependence with uncomplicated withdrawal Current Visit: Yes Status: Chronic (3) Asthma Current Visit: Yes Status: Chronic Qualifiers: Asthma severity: mild intermittent Asthma complication type: uncomplicated Qualified Code(s): J45.20 - Mild intermittent asthma, uncomplicated (4) Cocaine dependence Current Visit: Yes Status: Chronic Qualifiers: Substance use status: uncomplicated Qualified Code(s): F14.20 - Cocaine dependence, uncomplicated (5) Methadone maintenance therapy patient Current Visit: Yes Status: Chronic (6) Uncomplicated sedative, hypnotic or anxiolytic withdrawal Current Visit: Yes Status: Chronic (7) Weight loss Current Visit: No Status: Acute (8) Hepatitis C Current Visit: No Status: Chronic Qualifiers: Viral hepatitis chronicity: chronic Hepatic coma status: without hepatic coma Qualified Code(s): B18.2 - Chronic viral hepatitis C - AMA Did Patient Leave Against Medical Advice: No
[2017-02-24] MEDS ORDERED: diazePAM 5 MG TABLET PO SCH (10:00)
[2017-02-24] MEDS: PRENATAL VITAMINS W/ FOLIC ACID TABLET (FP) PO SCH (10:06)
[2017-02-24] MEDS: NICOTINE POLACRILEX 4 MG GUM BUC PRN (10:06)
[2017-02-24] MEDS: NICOTINE 21 MG/24 HOURS TOPICAL PATCH TD SCH (10:06)
[2017-02-24] MEDS: PANTOPRAZOLE 40 MG TABLET (FP) PO SCH (10:06)
[2017-02-24 10:13] VITALS: BP 119/69; PULSE 91; TEMP 98.2
== END 2017-02-24 11:40 | disposition other institution (70) | DRG 773 ==
LOC: YASAS 14:15 → Y6N 16:19
PROVIDERS: ADMIT Internal Medicine Addiction Medicine; ATTEND Internal Medicine Addiction Medicine
PROC: HZ2ZZZZ Detoxification Services for Substance Abuse Treatment (ICD-10-PCS; principal; 2017-02-20)
DX: F13.230 Sedative, hypnotic or anxiolytic dependence with withdrawal, uncomplicated (principal); F10.230 Alcohol dependence with withdrawal, uncomplicated; F11.20 Opioid dependence, uncomplicated; F14.20 Cocaine dependence, uncomplicated; F17.210 Nicotine dependence, cigarettes, uncomplicated; F19.24 Other psychoactive substance dependence with psychoactive substance-induced mood disorder; J45.20 Mild intermittent asthma, uncomplicated; B18.2 Chronic viral hepatitis C; Z87.898 Personal history of other specified conditions
CPT/HCPCS: 36415; 80053; 81003; 85027; 86593; 93005; 93010

== ENCOUNTER 2017-02-24 12:08 | Inpatient (IN) | payer OTHER ==
[2017-02-24 12:39] VITALS: BMI 28.3
[2017-02-24] MEDS ORDERED: IBUPROFEN 400 MG TABLET (FP) PO PRN (12:44)
[2017-02-24] MEDS ORDERED: MENTHOL/PHENOL 1 EACH UD MM PRN (12:44)
[2017-02-24] MEDS ORDERED: guaiFENesin/D-METHORPHAN HB 10 ML UNIT-DOSE CUPS PO PRN (12:44)
[2017-02-24] MEDS ORDERED: P-EPHED 60MG/TRIPROLIDI 2.5MG TABLET PO PRN (12:44)
[2017-02-24] MEDS ORDERED: LOPERAMIDE HCL 2 MG CAPSULE PO PRN (12:44)
[2017-02-24] MEDS ORDERED: MAGNESIUM HYDROX 2400MG/30ML ORAL SUSPENSION 30 ML CUP PO PRN (12:44)
[2017-02-24] MEDS ORDERED: ACETAMINOPHEN 325 MG TABLET (FP) PO PRN (12:44)
[2017-02-24] MEDS ORDERED: hydrOXYzine PAMOATE 50 MG CAPSULE (FP) PO PRN (12:44)
[2017-02-24] MEDS ORDERED: MAGNESIUM CITRATE 300 ML BOTTLE PO PRN (12:44)
[2017-02-24] MEDS ORDERED: ALBUTEROL SO4 6.7 GM HFA INHALER IH PRN (12:46)
--- NOTE | 2017-02-24 21:08 | HP ---
MALATHI EL Rehab Assess/Revision - Admission History Admitted to Rehab from: [facility] [address] [place] Date of Admission to Rehab: 02/24/17 - Vital signs Vital Signs: Vital Signs Period Temp Pulse Resp BP Sys/Scales Pulse Ox Last 24 Hr 97.9 F 83 19 126/70 - Findings Detox History & Physical reviewed: Yes Concur with findings: Yes Comments/Additional Findings: for rehab as protocol
[2017-02-24] MEDS: MIRTAZAPINE 15 MG TABLET (FP) PO SCH (21:15)
[2017-02-24] MEDS: THIAMINE HCL 100 MG TABLET (FP) PO SCH (21:15)
[2017-02-24] MEDS: diphenhydrAMINE HCL 50 MG CAPSULE PO PRN (21:16)
[2017-02-25] MEDS ORDERED: METHADONE HCL 40 MG DISPERSABLE TABLET ONE (05:46)
[2017-02-25] MEDS ORDERED: METHADONE HCL 10 MG TABLET ONE (05:46)
[2017-02-25] MEDS ORDERED: METHADONE HCL 10 MG TABLET PO SCH (06:00)
[2017-02-25] MEDS: METHADONE 120 MG, METHADONE 30 MG PO SCH (06:25)
[2017-02-25] MEDS: NICOTINE 21 MG/24 HOURS TOPICAL PATCH TD SCH (09:44)
[2017-02-25] MEDS: PRENATAL VITAMINS W/ FOLIC ACID TABLET (FP) PO SCH (09:44)
[2017-02-25] MEDS: MAG HYDROX/AL HYDROX/SIMETH 30 ML UNIT-DOSE CUP PO PRN (11:50)
[2017-02-25] MEDS: THIAMINE HCL 100 MG TABLET (FP) PO SCH (21:18)
[2017-02-25] MEDS: MIRTAZAPINE 15 MG TABLET (FP) PO SCH (21:18)
[2017-02-25] MEDS: diphenhydrAMINE HCL 50 MG CAPSULE PO PRN (21:18)
[2017-02-26] MEDS ORDERED: METHADONE HCL 10 MG TABLET ONE (03:46)
[2017-02-26] MEDS ORDERED: METHADONE HCL 40 MG DISPERSABLE TABLET ONE (03:46)
[2017-02-26] MEDS: METHADONE 120 MG, METHADONE 30 MG PO SCH (06:10)
[2017-02-26] MEDS: NICOTINE 21 MG/24 HOURS TOPICAL PATCH TD SCH (09:31)
[2017-02-26] MEDS: PRENATAL VITAMINS W/ FOLIC ACID TABLET (FP) PO SCH (09:31)
[2017-02-26] MEDS: THIAMINE HCL 100 MG TABLET (FP) PO SCH (21:12)
[2017-02-26] MEDS: diphenhydrAMINE HCL 50 MG CAPSULE PO PRN (21:12)
[2017-02-26] MEDS: MIRTAZAPINE 15 MG TABLET (FP) PO SCH (21:12)
[2017-02-27] MEDS ORDERED: METHADONE HCL 10 MG TABLET ONE (03:17)
[2017-02-27] MEDS ORDERED: METHADONE HCL 40 MG DISPERSABLE TABLET ONE (03:17)
[2017-02-27] MEDS: METHADONE 120 MG, METHADONE 30 MG PO SCH (06:17)
--- NOTE | 2017-02-27 07:42 | HP ---
Psychiatrist Admission - Data Date of interview: 02/27/17 Admission source: 6N Identifying data: This is the first [facility] admission for this 31 years old single male, unemployed on food stamp, homeless [facility] jail Medical History: Significant for Asthma and Hep C. Smokes 10 cigarettes daily Psychiatric History: Reports that he started seeing a psychiatrist in the [place] 3 months ago because of his addiction and feeling lonely for not having family in this country. Claims that he was diagnosed with depression and started on Remeron 15 mg po HS. Told expert medical writer that he last saw that psychiatrist on 02/13/17. Denies prior psychiatric hospitalization or suicidal attempt Physical/Sexual Abuse/Trauma History: Denies history of emotional, physical or sexual abuse as well as DV relationship Additional Comment: Reports history of 4 previous misdemeanor arrests. Denies being on probation at present Vital Signs: Vital Signs - 24 hr 02/27/17 02/27/17 02/27/17 00:30 03:25 06:39 Temperature 97.8 F Pulse Rate 65 Respiratory 18 18 16 Rate Blood Pressure 103/71 Allergies/Adverse Reactions: Allergies Allergy/AdvReac Type Severity Reaction Status Date / Time No Known Allergies Allergy Verified 02/20/17 14:57 Date of last physical exam: 02/20/17 Concur with the findings of this exam: Yes - Substance Abuse/Tx History Hx Alcohol Use: Yes Hx Substance Use: Yes Substance Use Type: Alcohol (Started drinking alcohol at age 17, consumes 4-5x 20 cans of beer daily. Last drink on 02/18/17), Cocaine (Started using cocaine at age 20, consumes $50-60 worth daily. Last used on 02/19/17), Tranquilizers ( Started using benzodiazepine at age 17, consumes 4 mg daily. Last used on ) Hx Substance Use Treatment: Yes (Currently attends [facility]; 2 previous inpt detox @ [facility]) - Admission Criteria Previous failed treatment: No Poor recovery environment: Yes Comorbidities: Yes Lacks judgement: Yes Mental Status Exam - Mental Status Exam Alert and Oriented to: Time, Place, Person Cognitive Function: Fair Patient Appearance: Well Groomed Mood: Hopeful, Euthymic Patient Behavior: Cooperative Speech Pattern: Clear Voice Loudness: Normal Thought Process: Intact Thought Disorder: Not Present Hallucinations: Denies Suicidal Ideation: Denies Homicidal Ideation: Denies Insight/Judgement: Fair Sleep: Poorly Appetite: Poor Muscle strength/Tone: Normal Gait/Station: Normal Psychiatric Findings - Problem List ([place] 1, 2,3) (1) Alcohol dependence Current Visit: Yes Status: Acute (2) Cocaine dependence Current Visit: No Status: Chronic Qualifiers: Substance use status: uncomplicated Qualified Code(s): F14.20 - Cocaine dependence, uncomplicated (3) Sedative, hypnotic or anxiolytic dependence Current Visit: Yes Status: Acute (4) Opioid dependence on agonist therapy Current Visit: Yes Status: Acute (5) Nicotine dependence Current Visit: Yes Status: Acute (6) Depressive disorder Current Visit: Yes Status: Acute (7) Substance induced mood disorder Current Visit: Yes Status: Ruled-out (8) Asthma Current Visit: No Status: Chronic Qualifiers: Asthma severity: mild intermittent Asthma complication type: uncomplicated Qualified Code(s): J45.20 - Mild intermittent asthma, uncomplicated (9) Hepatitis C Current Visit: No Status: Chronic Qualifiers: Viral hepatitis chronicity: chronic Hepatic coma status: without hepatic coma Qualified Code(s): B18.2 - Chronic viral hepatitis C - Initial Treatment Plan Initial Treatment Plan: 1) Continue Remeron 15 mg po HS. 2) Monitor progress
[2017-02-27] MEDS: NICOTINE 21 MG/24 HOURS TOPICAL PATCH TD SCH (10:17)
[2017-02-27] MEDS: PRENATAL VITAMINS W/ FOLIC ACID TABLET (FP) PO SCH (10:17)
[2017-02-27] MEDS: NICOTINE POLACRILEX 4 MG GUM BUC PRN (10:18)
[2017-02-27] MEDS: THIAMINE HCL 100 MG TABLET (FP) PO SCH (21:16)
[2017-02-27] MEDS: MIRTAZAPINE 15 MG TABLET (FP) PO SCH (21:16)
[2017-02-27] MEDS: diphenhydrAMINE HCL 50 MG CAPSULE PO PRN (21:17)
[2017-02-28] MEDS ORDERED: METHADONE HCL 40 MG DISPERSABLE TABLET ONE (04:14)
[2017-02-28] MEDS ORDERED: METHADONE HCL 10 MG TABLET ONE (04:14)
[2017-02-28] MEDS: METHADONE 120 MG, METHADONE 30 MG PO SCH (06:02)
[2017-02-28] MEDS: PRENATAL VITAMINS W/ FOLIC ACID TABLET (FP) PO SCH (10:20)
[2017-02-28] MEDS: NICOTINE 21 MG/24 HOURS TOPICAL PATCH TD SCH (10:20)
[2017-02-28] MEDS: NICOTINE POLACRILEX 4 MG GUM BUC PRN (10:21)
[2017-02-28] MEDS: THIAMINE HCL 100 MG TABLET (FP) PO SCH (21:03)
[2017-02-28] MEDS: diphenhydrAMINE HCL 50 MG CAPSULE PO PRN (21:03)
[2017-02-28] MEDS: MIRTAZAPINE 15 MG TABLET (FP) PO SCH (21:04)
[2017-02-28] MEDS: MAG HYDROX/AL HYDROX/SIMETH 30 ML UNIT-DOSE CUP PO PRN (21:40)
[2017-03-01] MEDS ORDERED: METHADONE HCL 40 MG DISPERSABLE TABLET ONE (03:05)
[2017-03-01] MEDS ORDERED: METHADONE HCL 10 MG TABLET ONE (03:05)
[2017-03-01] MEDS: METHADONE 120 MG, METHADONE 30 MG PO SCH (06:15)
[2017-03-01] MEDS: PRENATAL VITAMINS W/ FOLIC ACID TABLET (FP) PO SCH (09:42)
[2017-03-01] MEDS: NICOTINE 21 MG/24 HOURS TOPICAL PATCH TD SCH (09:42)
[2017-03-01] MEDS: MAG HYDROX/AL HYDROX/SIMETH 30 ML UNIT-DOSE CUP PO PRN (17:34)
[2017-03-01] MEDS: MIRTAZAPINE 15 MG TABLET (FP) PO SCH (21:17)
[2017-03-01] MEDS: diphenhydrAMINE HCL 50 MG CAPSULE PO PRN (21:17)
[2017-03-01] MEDS: THIAMINE HCL 100 MG TABLET (FP) PO SCH (21:17)
[2017-03-02] MEDS ORDERED: METHADONE HCL 40 MG DISPERSABLE TABLET ONE (03:25)
[2017-03-02] MEDS ORDERED: METHADONE HCL 10 MG TABLET ONE (03:25)
[2017-03-02] MEDS: METHADONE 120 MG, METHADONE 30 MG PO SCH (06:01)
[2017-03-02] MEDS: NICOTINE 21 MG/24 HOURS TOPICAL PATCH TD SCH (09:49)
[2017-03-02] MEDS: PRENATAL VITAMINS W/ FOLIC ACID TABLET (FP) PO SCH (09:49)
[2017-03-02] MEDS: NICOTINE POLACRILEX 4 MG GUM BUC PRN (09:50)
[2017-03-02] MEDS ORDERED: PT OWN MED DRAWER 7, Y5N ONE (11:01)
[2017-03-02] MEDS: THIAMINE HCL 100 MG TABLET (FP) PO SCH (21:04)
[2017-03-02] MEDS: MIRTAZAPINE 15 MG TABLET (FP) PO SCH (21:04)
[2017-03-02] MEDS: diphenhydrAMINE HCL 50 MG CAPSULE PO PRN (21:05)
[2017-03-03] MEDS ORDERED: METHADONE HCL 10 MG TABLET ONE (04:47)
[2017-03-03] MEDS ORDERED: METHADONE HCL 40 MG DISPERSABLE TABLET ONE (04:47)
[2017-03-03] MEDS: METHADONE 120 MG, METHADONE 30 MG PO SCH (06:21)
[2017-03-03] MEDS: MAG HYDROX/AL HYDROX/SIMETH 30 ML UNIT-DOSE CUP PO PRN (08:42)
[2017-03-03] MEDS: NICOTINE 21 MG/24 HOURS TOPICAL PATCH TD SCH (09:32)
[2017-03-03] MEDS: NICOTINE POLACRILEX 4 MG GUM BUC PRN (09:32)
[2017-03-03] MEDS: PRENATAL VITAMINS W/ FOLIC ACID TABLET (FP) PO SCH (09:32)
[2017-03-03] MEDS: MIRTAZAPINE 15 MG TABLET (FP) PO SCH (21:31)
[2017-03-03] MEDS: THIAMINE HCL 100 MG TABLET (FP) PO SCH (21:31)
[2017-03-04] MEDS ORDERED: METHADONE HCL 40 MG DISPERSABLE TABLET ONE (03:22)
[2017-03-04] MEDS ORDERED: METHADONE HCL 10 MG TABLET ONE (03:22)
[2017-03-04] MEDS: METHADONE 120 MG, METHADONE 30 MG PO SCH (06:13)
[2017-03-04] MEDS: PRENATAL VITAMINS W/ FOLIC ACID TABLET (FP) PO SCH (10:13)
[2017-03-04] MEDS: NICOTINE 21 MG/24 HOURS TOPICAL PATCH TD SCH (10:13)
[2017-03-04] MEDS: THIAMINE HCL 100 MG TABLET (FP) PO SCH (21:36)
[2017-03-04] MEDS: MIRTAZAPINE 15 MG TABLET (FP) PO SCH (21:36)
[2017-03-04] MEDS: diphenhydrAMINE HCL 50 MG CAPSULE PO PRN (21:37)
[2017-03-05] MEDS ORDERED: METHADONE HCL 40 MG DISPERSABLE TABLET ONE (03:57)
[2017-03-05] MEDS ORDERED: METHADONE HCL 10 MG TABLET ONE (03:57)
[2017-03-05] MEDS: METHADONE 120 MG, METHADONE 30 MG PO SCH (06:08)
[2017-03-05] MEDS: PRENATAL VITAMINS W/ FOLIC ACID TABLET (FP) PO SCH (10:07)
[2017-03-05] MEDS: MAG HYDROX/AL HYDROX/SIMETH 30 ML UNIT-DOSE CUP PO PRN (10:07)
[2017-03-05] MEDS: NICOTINE 21 MG/24 HOURS TOPICAL PATCH TD SCH (10:29)
[2017-03-05] MEDS ORDERED: FLUTICASONE PROP 0.05% 16 GM NASAL SPRAY NS SCH (13:00)
[2017-03-05] MEDS ORDERED: LORATADINE 10 MG TABLET PO SCH (13:00)
[2017-03-05] MEDS: BACITRACIN 15 GM TUBE TOPICAL OINTMENT TP SCH ×2 (16:36→21:12)
[2017-03-05] MEDS: MIRTAZAPINE 15 MG TABLET (FP) PO SCH (21:11)
[2017-03-05] MEDS: diphenhydrAMINE HCL 50 MG CAPSULE PO PRN (21:11)
[2017-03-05] MEDS: THIAMINE HCL 100 MG TABLET (FP) PO SCH (21:11)
[2017-03-06] MEDS ORDERED: METHADONE HCL 40 MG DISPERSABLE TABLET ONE (04:00)
[2017-03-06] MEDS ORDERED: METHADONE HCL 10 MG TABLET ONE (04:00)
[2017-03-06] MEDS: METHADONE 120 MG, METHADONE 30 MG PO SCH (06:01)
[2017-03-06 06:55] VITALS: BP 106/69; PULSE 62; TEMP 97.5
--- NOTE | 2017-03-06 09:21 | PN ---
Psychiatric Progress Note Vital Signs: Vital Signs Period Temp Pulse Resp BP Sys/Scales Pulse Ox Last 24 Hr 97.5 F 62 18-18 106/69 Date of Session: 03/06/17 Chief Complaint:: Discharge Note HPI: Patient addressing ASlcohol, Cocaine and Sedative Dependence comorbid with Opoid Dependence on Agonist Therapy, Nicotine Dependence and Depressive Disorder ROS: Asthma Current Medications: Active Medications Generic Name Dose Route Start Last Admin Trade Name Freq PRN Reason Stop Dose Admin Acetaminophen 650 mg 02/24/17 12:44 Tylenol - PO Q4H PRN FEVER OR PAIN Al Hydroxide/Mg Hydroxide 30 ml 02/24/17 12:44 03/05/17 10:07 Mylanta Oral Suspension - PO 30 ml Q6H PRN Administration DYSPEPSIA Albuterol Sulfate 2 puff 02/24/17 12:46 Ventolin Hfa Inhaler - IH Q4H PRN SHORT OF BREATH/WHEEZING Bacitracin 1 applic 03/05/17 13:00 03/05/17 21:12 Bacitracin - TP 1 applic BID SINDY Administration Diphenhydramine HCl 50 mg 02/24/17 12:44 03/05/17 21:11 Benadryl - PO 50 mg HSMR1 PRN Administration FOR ITCHING Eucalyptus/Menthol/Phenol/Sorbitol 1 each 02/24/17 12:44 Cepastat Lozenge - MM Q4H PRN SORE THROAT Guaifenesin 10 ml 02/24/17 12:44 Robitussin Dm - PO Q6H PRN COUGH Hydroxyzine Pamoate 50 mg 02/24/17 12:44 Vistaril - PO Q4H PRN AGITATION Ibuprofen 400 mg 02/24/17 12:44 Motrin - PO Q6H PRN PAIN Loperamide HCl 4 mg 02/24/17 12:44 02/25/17 07:54 Imodium - PO 4 mg Q6H PRN Administration DIARRHEA Magnesium Hydroxide 30 ml 02/24/17 12:44 Milk Of Magnesia - PO DAILY PRN CONSTIPATION Methadone HCl 120 mg/ 150 mg 03/03/17 06:00 03/06/17 06:01 Methadone HCl 30 mg PO 150 mg DAILY@0600 SINDY Administration Mirtazapine 15 mg 02/24/17 22:00 03/05/17 21:11 Remeron - PO 15 mg HS SINDY Administration Nicotine 21 mg 02/25/17 10:00 03/05/17 10:29 Nicoderm Patch - TD Not Given DAILY SINDY Nicotine Polacrilex 4 mg 02/24/17 12:44 03/03/17 09:32 Nicorette Gum - BUC 4 mg Q2H PRN Administration NICOTINE REPLACEMENT RX Multivit/Folic Acid/Iron 1 tab 02/25/17 10:00 03/05/17 10:07 Vitamins (Sjr) - PO 1 tab DAILY SINDY Administration Pseudoephedrine/Triprolidine 1 combo 02/24/17 12:44 Actifed - PO TID PRN NASAL CONGESTION Thiamine HCl 100 mg 02/24/17 22:00 03/05/17 21:11 Vitamin B1 - PO 100 mg HS SINDY Administration Current Side Effect: No Lab tests ordered: Yes Lab tests reviewed: Yes Provider note:: Patient has completed this program today. He has met his short term goals and will continue to address his issues in outpatient treatment at [facility]. Told senior grant writer that from his participation in this program, he has learned the importance of attending AA/NA meetings and to have a sponsor. He responed well to Remeron 15 mg po HS. Told senior grant writer that he has medication at home and does not need script. He is stable for discharge today Total face to face time:: 35 Psychiatric Treatment Plan - Problem List (1) Alcohol dependence Current Visit: Yes (2) Cocaine dependence Current Visit: No Qualifiers: Substance use status: uncomplicated Qualified Code(s): F14.20 - Cocaine dependence, uncomplicated (3) Sedative, hypnotic or anxiolytic dependence Current Visit: Yes (4) Opioid dependence on agonist therapy Current Visit: Yes (5) Nicotine dependence Current Visit: Yes (6) Depressive disorder Current Visit: Yes (7) Substance induced mood disorder Current Visit: Yes (8) Asthma Current Visit: No Qualifiers: Asthma severity: mild intermittent Asthma complication type: uncomplicated Qualified Code(s): J45.20 - Mild intermittent asthma, uncomplicated (9) Hepatitis C Current Visit: No Qualifiers: Viral hepatitis chronicity: chronic Hepatic coma status: without hepatic coma Qualified Code(s): B18.2 - Chronic viral hepatitis C
[2017-03-06] MEDS: BACITRACIN 15 GM TUBE TOPICAL OINTMENT TP SCH (09:23)
[2017-03-06] MEDS: PRENATAL VITAMINS W/ FOLIC ACID TABLET (FP) PO SCH (09:23)
[2017-03-06] MEDS: NICOTINE 21 MG/24 HOURS TOPICAL PATCH TD SCH (09:24)
== END 2017-03-06 09:45 | disposition home or self-care (01) | DRG 772 ==
LOC: YASAS 12:08 → Y3W 12:09
PROVIDERS: ADMIT Psychiatry & Neurology Psychiatry; ATTEND Psychiatry & Neurology Psychiatry
PROC: HZ42ZZZ Group Counseling for Substance Abuse Treatment, Cognitive-Behavioral (ICD-10-PCS; principal; 2017-02-24)
DX: F10.20 Alcohol dependence, uncomplicated (principal); F11.20 Opioid dependence, uncomplicated; F13.20 Sedative, hypnotic or anxiolytic dependence, uncomplicated; F14.20 Cocaine dependence, uncomplicated; F17.210 Nicotine dependence, cigarettes, uncomplicated; F32.9 Major depressive disorder, single episode, unspecified; F19.24 Other psychoactive substance dependence with psychoactive substance-induced mood disorder; J45.20 Mild intermittent asthma, uncomplicated; B18.2 Chronic viral hepatitis C

== ENCOUNTER 2017-08-01 12:22 | Inpatient (IN) | payer OTHER ==
[2017-08-01 14:38] VITALS: BMI 25.8
--- NOTE | 2017-08-01 15:13 | HP ---
CIWA Score - CIWA Score Nausea/Vomitin-No Nausea/No Vomiting Muscle Tremors: 4-Moderate,w/Arms Extend Anxiety: 4-Mod. Anxious/Guarded Agitation: 4-Moderately Restless Paroxysmal Sweats: 3 Orientation: 0-Oriented Tacttile Disturbances: 0-None Auditory Disturbances: 0-None Visual Disturbances: 0-None Headache: 0-None Present CIWA-Ar Total Score: 15 Admission ROS [facility] - HPI Chief Complaint: I need to stop drinking. I dont want to lose my apartment. Allergies/Adverse Reactions: Allergies Allergy/AdvReac Type Severity Reaction Status Date / Time No Known Allergies Allergy Verified 08/01/17 15:01 History of Present Illness: pt is a31yr old male with a history of alcohol and xanax dependence seeking detox for treatment. Exam Limitations: No Limitations - Ebola screening Have you traveled outside of the country in the last 21 days: No (N) Have you had contact with anyone from an Ebola affected area: No Have you been sick,other than usual withdrawal symptoms: No Do you have a fever: No - Review of Systems Constitutional: Chills, Diaphoresis, Loss of Appetite, Night Sweats, Changes in sleep, Unintentional Wgt. Loss EENT: reports: No Symptoms Reported Respiratory: reports: No Symptoms reported Cardiac: reports: No Symptoms Reported GI: reports: Poor Appetite, Poor Fluid Intake, Indigestion : reports: No Symptoms Reported Musculoskeletal: reports: No Symptoms Reported Integumentary: reports: Flushing, Sweating Neuro: reports: Headache, Tingling, Tremors Endocrine: reports: Excessive Sweating, Flushing, Intolerance to Cold, Intolerance to Heat Hematology: reports: No Symptoms Reported Psychiatric: reports: Judgement Intact, Mood/Affect Appropiate, Orientated x3, Agitated, Anxious Other Systems: Reviewed and Negative Patient History - Patient Medical History Hx Anemia: No Hx Asthma: Yes Hx Chronic Obstructive Pulmonary Disease (COPD): No Hx Cancer: No Hx Cardiac Disorders: No Hx Congestive Heart Failure: No Hx Hypertension: No Hx Hypercholesterolemia: No Hx Pacemaker: No HX Cerebrovascular Accident: No Hx Seizures: No Hx Dementia: No Hx Diabetes: No Hx Gastrointestinal Disorders: Yes (gastritis) Hx Liver Disease: No Hx Genitourinary Disorders: No Hx Sexually Transmitted Disorders: No Hx Renal Disease (ESRD): No Hx Human Immunodeficiency Virus (HIV): No (negative) Hx Hepatitis C: Yes Hx Depression: Yes Hx Suicide Attempt: No (denies any s/i ideation) Hx Bipolar Disorder: No Hx Schizophrenia: No - Patient Surgical History Past Surgical History: No Anesthesia Reaction: No - PPD History Previous Implant?: Yes Documented Results: Negative w/proof Date: 12/06/16 Results: 0 mm PPD to be Administered?: No - Reproductive History Patient is a Female of Child Bearing Age (11 -55 yrs old): No - Smoking Cessation Smoking history: Current every day smoker Have you smoked in the past 12 months: Yes Aproximately how many cigarettes per day: 10 Hx Chewing Tobacco Use: No Initiated information on smoking cessation: Yes 'Breaking Loose' booklet given: 08/01/17 - Substance & Tx. History Hx Alcohol Use: Yes Hx Substance Use: Yes Substance Use Type: Alcohol, Cocaine Hx Substance Use Treatment: Yes (last detox 11/2016) - Substances Abused Alcohol Route: Oral Frequency: Daily Amount used: 2-3 pint vodka/ 4 bottles beer Age of first use: 19 Date of Last Use: 08/01/17 heroin Route: Injection Frequency: Daily Age of first use: 15 Date of Last Use: 08/01/17 Xanax Route: Oral Frequency: 1-2 times per week Amount used: 4 mg. Age of first use: 18 Date of Last Use: 07/28/17 Family Disease History - Family Disease History Family History: Denies Admission Physical Exam [facility] - Vital Signs Vital Signs: Vital Signs - 24 hr 08/01/17 14:35 Temperature 98.6 F Pulse Rate 69 Respiratory 20 Rate Blood Pressure 138/81 - Physical General Appearance: Yes: Appropriately Dressed, Tremorous, Irritable, Sweating, Anxious HEENTM: Yes: Normal Voice, Nasal Congestion, Rhinorrhea Respiratory: Yes: Lungs Clear, Normal Breath Sounds, No Respiratory Distress Neck: Yes: Within Normal Limits Breast: Yes: Within Normal Limits Cardiology: Yes: Regular Rhythm, Regular Rate, S1, S2 Abdominal: Yes: Normal Bowel Sounds, Non Tender, Soft Genitourinary: Yes: Within Normal Limits Back: Yes: Normal Inspection Musculoskeletal: Yes: full range of Motion, Back pain Extremities: Yes: Normal Capillary Refill, Normal Inspection, Non-Tender, Tremors Neurological: Yes: Fully Oriented, Alert, Normal Response Integumentary: Yes: Normal Color, Diaphoresis, Track [place] Lymphatic: Yes: Within Normal Limits - Diagnostic (1) Nicotine dependence Current Visit: Yes Status: Chronic Qualifiers: Nicotine product type: cigarettes Substance use status: uncomplicated Qualified Code(s): F17.210 - Nicotine dependence, cigarettes, uncomplicated (2) Alcohol dependence with uncomplicated withdrawal Current Visit: Yes Status: Chronic (3) Asthma Current Visit: Yes Status: Chronic Qualifiers: Asthma severity: mild Asthma complication type: uncomplicated (4) Cocaine dependence Current Visit: No Status: Chronic Qualifiers: Substance use status: uncomplicated (5) Hepatitis C Current Visit: Yes Status: Chronic Qualifiers: Viral hepatitis chronicity: chronic Hepatic coma status: without hepatic coma Qualified Code(s): B18.2 - Chronic viral hepatitis C (6) Methadone maintenance therapy patient Current Visit: Yes Status: Chronic (7) Uncomplicated sedative, hypnotic or anxiolytic withdrawal Current Visit: Yes Status: Chronic (8) Heroin abuse Current Visit: Yes Status: Chronic Cleared for Admission S - Detox or Rehab [facility] Level of Care: Medically Managed Detox Regimen/Protocol: Librium [facility] Breath Alcohol Content Breath Alcohol Content: 0 Urine Drug Screen - Results Drug Screen Negative: No Urine Drug Screen Results: NICK-Cocaine, OPI-Opiates, MTD-Methadone
[2017-08-01] MEDS ORDERED: MAG HYDROX/AL HYDROX/SIMETH 30 ML UNIT-DOSE CUP PO PRN (15:21)
[2017-08-01] MEDS ORDERED: P-EPHED 60MG/TRIPROLIDI 2.5MG TABLET PO PRN (15:21)
[2017-08-01] MEDS ORDERED: chlordiazePOXIDE HCL 25 MG CAPSULE PO PRN (15:21)
[2017-08-01] MEDS ORDERED: guaiFENesin/D-METHORPHAN HB 10 ML UNIT-DOSE CUPS PO PRN (15:21)
[2017-08-01] MEDS ORDERED: ACETAMINOPHEN 325 MG TABLET (FP) PO PRN (15:21)
[2017-08-01] MEDS ORDERED: hydrOXYzine PAMOATE 50 MG CAPSULE (FP) PO PRN (15:21)
[2017-08-01] MEDS ORDERED: MAGNESIUM CITRATE 300 ML BOTTLE PO PRN (15:21)
[2017-08-01] MEDS ORDERED: LOPERAMIDE HCL 2 MG CAPSULE PO PRN (15:21)
[2017-08-01] MEDS ORDERED: chlordiazePOXIDE HCL 25 MG CAPSULE PO ONE (15:21)
[2017-08-01] MEDS ORDERED: NICOTINE POLACRILEX 4 MG GUM BUC PRN (15:21)
[2017-08-01] MEDS ORDERED: IBUPROFEN 400 MG TABLET (FP) PO PRN (15:21)
[2017-08-01] MEDS ORDERED: MENTHOL/PHENOL 1 EACH UD MM PRN (15:21)
[2017-08-01] MEDS ORDERED: MAGNESIUM HYDROX 2400MG/30ML ORAL SUSPENSION 30 ML CUP PO PRN (15:21)
[2017-08-01] MEDS: chlordiazePOXIDE HCL 25 MG CAPSULE PO SCH ×2 (17:37→22:09)
[2017-08-01] MEDS: THIAMINE HCL 100 MG TABLET (FP) PO SCH (22:09)
[2017-08-01 23:07] LABS: URINE APPEARANCE CLEAR; URINE BILIRUBIN NEGATIVE (NEGATIVE); URINE BLOOD NEGATIVE (NEGATIVE); URINE COLOR YELLOW; URINE GLUCOSE (UA) NEGATIVE (NEGATIVE); URINE KETONE NEGATIVE (NEGATIVE); URINE LEUK ESTERASE NEGATIVE (NEGATIVE); URINE NITRITE NEGATIVE (NEGATIVE); URINE PROTEIN NEGATIVE (NEGATIVE); URINE UROBILINOGEN NEGATIVE mg/dL (0.2-1.0)
[2017-08-02] MEDS: chlordiazePOXIDE HCL 25 MG CAPSULE PO SCH ×4 (05:19→22:07)
[2017-08-02] MEDS ORDERED: METHADONE HCL 10 MG TABLET PO SCH (07:15)
[2017-08-02] MEDS ORDERED: METHADONE HCL 10 MG TABLET ONE (07:48)
[2017-08-02] MEDS ORDERED: METHADONE HCL 40 MG DISPERSABLE TABLET ONE (07:48)
[2017-08-02] MEDS: METHADONE 120 MG, METHADONE 30 MG PO SCH (07:49)
[2017-08-02 10:11] LABS: HEMATOCRIT 38.9 % (35.4-49); HEMOGLOBIN 12.7 GM/dL (11.7-16.9); MCH 26.5 pg (25.7-33.7); MCHC 32.5 g/dl (32.0-35.9); MEAN CELL VOLUME 81.4 fl (80-96); MEAN PLT VOLUME 8.4 fl (7.5-11.1); PLATELET COUNT 213 K/MM3 (134-434); RBC 4.78 M/mm3 (4.00-5.60); RDW 14.4 % (11.9-15.9); WHITE BLOOD COUNT 6.3 K/mm3 (4.0-10.0)
[2017-08-02 10:25] LABS: CHLORIDE 105 mmol/L (98-107); POTASSIUM 3.8 mmol/L (3.5-5.1); SODIUM 142 mmol/L (136-145)
[2017-08-02] MEDS: PRENATAL VITAMINS W/ FOLIC ACID TABLET (FP) PO SCH (10:36)
[2017-08-02] MEDS: NICOTINE 21 MG/24 HOURS TOPICAL PATCH TD SCH (10:36)
[2017-08-02 10:39] LABS: ALBUMIN 3.7 g/dl (3.4-5.0); ALK PHOS 112 U/L (45-117); ANION GAP 6 (8-16); BILIRUBIN,TOTAL 0.7 mg/dL (0.2-1.0); BLOOD UREA NITROGEN 14 mg/dL (7-18); CALCIUM 8.5 mg/dL (8.5-10.1); CO2 31 mmol/L (21-32); CREATININE 0.8 mg/dL (0.7-1.3); GLUCOSE,RANDOM 87 mg/dL (74-106); SGOT/AST 29 U/L (15-37); SGPT/ALT 31 U/L (12-78); TOT PROT 7.7 g/dl (6.4-8.2)
--- NOTE | 2017-08-02 11:02 | CONSULT ---
[facility] Psychiatric Consult - Data Date of interview: 08/02/17 Admission source: [facility] Identifying data: Pt. is a 31 year old [place] male, single, without kids, and currently unemployed. This is one of multiple admissions for patient. Pt. admitted to for alcohol, opiate, benzodiazepine and cocaine dependence. Substance Abuse History: Following information confirmed with Mr. Craig: Smoking Cessation. Smoking history: Current every day smoker. Have you smoked in the past 12 months: Yes. Aproximately how many cigarettes per day: 10. Hx Chewing Tobacco Use: No. Initiated information on smoking cessation: Yes. ' Breaking Loose' booklet given: 08/01/17. - Substance & Tx. History. Hx Alcohol Use: Yes. Hx Substance Use: Yes. Substance Use Type: Alcohol, Cocaine. Hx Substance Use Treatment: Yes (last detox 11/2016). - Substances Abused. Alcohol. Route: Oral. Frequency: Daily. Amount used: 2-3 pint vodka/ 4 bottles beer. Age of first use: 19. Date of Last Use: 08/01/17. heroin. Route: Injection. Frequency: Daily. Age of first use: 15. Date of Last Use: 08/01/17. Xanax. Route: Oral. Frequency: 1-2 times per week. Amount used: 4 mg. Age of first use: 18. Date of Last Use: 07/28/17 Medical History: Asthma, gastritis Psychiatric History: Pt. reports two psychatric hospitalizations, both in [place] in 2003 and 2004. In 2003 patient had a suicide attempt via overdose on xanax after his brother's . Pt. reports a second suicide attempt in 2006 via heroin overdose which resulted in patient being medically hospitalized. Outpatient care is currently provided at the [facility] in the [place]. Pt. is currently prescribed Mirtazapine 15mg. Pt. reports a diagnosis of depression. Pt. denies suicidal and homicidal ideation. Physical/Sexual Abuse/Trauma History: Denies. Mental Status Exam - Mental Status Exam Alert and Oriented to: Time, Place, Person Cognitive Function: Good Patient Appearance: Unkempt Mood: Hopeful Affect: Mood Congruent Patient Behavior: Appropriate, Cooperative Speech Pattern: Appropriate Voice Loudness: Normal Thought Process: Goal Oriented Thought Disorder: Not Present Hallucinations: Denies Suicidal Ideation: Denies Homicidal Ideation: Denies Insight/Judgement: Poor Sleep: Poorly Appetite: Good Muscle strength/Tone: Normal Gait/Station: Normal Psychiatric Findings - Problem List (Rose 1, 2,3) (1) Alcohol dependence with uncomplicated withdrawal Current Visit: Yes Status: Chronic (2) Nicotine dependence Current Visit: Yes Status: Chronic Qualifiers: Nicotine product type: cigarettes Substance use status: uncomplicated Qualified Code(s): F17.210 - Nicotine dependence, cigarettes, uncomplicated (3) Uncomplicated sedative, hypnotic or anxiolytic withdrawal Current Visit: Yes Status: Chronic (4) Cocaine dependence Current Visit: Yes Status: Chronic Qualifiers: Substance use status: uncomplicated Qualified Code(s): F14.20 - Cocaine dependence, uncomplicated (5) Methadone maintenance therapy patient Current Visit: Yes Status: Chronic (6) MDD (major depressive disorder) Current Visit: Yes Status: Chronic Comment: Self reports. - Initial Treatment Plan Initial Treatment Plan: Psychoeducation provided. Detoxification in progress. Mirtzapine 15mg qhs ordered. Benefits and side effects discussed. Verbal consent given. Will continue to monitor patient.
--- NOTE | 2017-08-02 12:15 | EKG ---
Test Reason : Blood Pressure : / mmHG Vent. Rate : 053 BPM Atrial Rate : 053 BPM P-R Int : 144 ms QRS Dur : 106 ms QT Int : 464 ms P-R-T Axes : 028 051 027 degrees QTc Int : 435 ms SINUS BRADYCARDIA INCOMPLETE RIGHT BUNDLE BRANCH BLOCK T WAVE ABNORMALITY, CONSIDER ANTERIOR ISCHEMIA ABNORMAL ECG WHEN COMPARED WITH ECG OF 20-FEB-2017 16:46, INCOMPLETE RIGHT BUNDLE BRANCH BLOCK IS NOW PRESENT T WAVE INVERSION NOW EVIDENT IN ANTERIOR LEADS Confirmed by ELVIA MATTHEWS MD ([id number]) on 08/02/2017 12:14:25 PM Referred By: Confirmed By:ELVIA MATTHEWS MD
--- NOTE | 2017-08-02 12:38 | PN ---
[facility] CIWA - CIWA Score Nausea/Vomitin-No Nausea/No Vomiting Muscle Tremors: 3 Anxiety: 4-Mod. Anxious/Guarded Agitation: 2 Paroxysmal Sweats: 3 Orientation: 2-Disoriented Date<2 days Tacttile Disturbances: 2-Mild Itch/Numbness/Burn Auditory Disturbances: 0-None Visual Disturbances: 0-None Headache: 3-Moderate CIWA-Ar Total Score: 19 BHS Progress Note (SOAP) Subjective: Body Aches, Fatigue, Tremors, Sweating, H/A. Objective: PT. A & O X 2 (UNCERTAIN ABOUT CURRENT DAY/ DATE). PT. OBSERVED AMBULATING ON UNIT. NO ACUTE DISTRESS. 08/02/17 12:35 Vital Signs Temperature 96.9 F L 08/02/17 09:22 Pulse Rate 67 08/02/17 09:22 Respiratory Rate 18 08/02/17 09:22 Blood Pressure 100/61 08/02/17 09:22 O2 Sat by Pulse Oximetry (%) Laboratory Tests 08/01/17 08/02/17 08/02/17 23:00 06:00 06:00 WBC 6.3 RBC 4.78 Hgb 12.7 Hct 38.9 MCV 81.4 MCH 26.5 MCHC 32.5 RDW 14.4 Plt Count 213 D MPV 8.4 Sodium 142 Potassium 3.8 Chloride 105 Carbon Dioxide 31 Anion Gap 6 L BUN 14 Creatinine 0.8 Creat Clearance w eGFR > 60 Random Glucose 87 Calcium 8.5 Total Bilirubin 0.7 D AST 29 ALT 31 D Alkaline Phosphatase 112 D Total Protein 7.7 Albumin 3.7 Urine Color Yellow Urine Appearance Clear Urine pH 6.0 Ur Specific [place] 1.011 Urine Protein Negative Urine Glucose (UA) Negative Urine Ketones Negative Urine Blood Negative Urine Nitrite Negative Urine Bilirubin Negative Urine Urobilinogen Negative Ur Leukocyte Esterase Negative LABS NOTED. RPR, HIV AB RESULTS PENDING. 08/02/17 12:37 Assessment: 08/02/17 12:36 WITHDRAWAL SYMPTOMS. Plan: CONTINUE DETOX.
--- NOTE | 2017-08-02 15:36 | EKG ---
Test Reason : Blood Pressure : / mmHG Vent. Rate : 058 BPM Atrial Rate : 058 BPM P-R Int : 140 ms QRS Dur : 106 ms QT Int : 450 ms P-R-T Axes : 008 064 033 degrees QTc Int : 441 ms SINUS BRADYCARDIA OTHERWISE NORMAL ECG WHEN COMPARED WITH ECG OF 01-AUG-2017 17:55, T WAVE INVERSION NO LONGER EVIDENT IN ANTERIOR LEADS Confirmed by ELVIA MATTHEWS MD ([id number]) on 08/02/2017 3:35:42 PM Referred By: Confirmed By:ELVIA MATTHEWS MD
[2017-08-02] MEDS: THIAMINE HCL 100 MG TABLET (FP) PO SCH (22:07)
[2017-08-02] MEDS: MIRTAZAPINE 15 MG TABLET (FP) PO SCH (22:07)
[2017-08-03] MEDS ORDERED: METHADONE HCL 10 MG TABLET ONE (04:59)
[2017-08-03] MEDS ORDERED: METHADONE HCL 40 MG DISPERSABLE TABLET ONE (05:00)
[2017-08-03] MEDS: chlordiazePOXIDE HCL 25 MG CAPSULE PO SCH ×2 (05:30→10:49)
[2017-08-03] MEDS: METHADONE 120 MG, METHADONE 30 MG PO SCH (05:30)
[2017-08-03] MEDS: NICOTINE 21 MG/24 HOURS TOPICAL PATCH TD SCH (10:49)
[2017-08-03] MEDS: PRENATAL VITAMINS W/ FOLIC ACID TABLET (FP) PO SCH (10:49)
--- NOTE | 2017-08-03 12:35 | PN ---
[facility] CIWA - CIWA Score Nausea/Vomitin-No Nausea/No Vomiting Muscle Tremors: 2 Anxiety: 4-Mod. Anxious/Guarded Agitation: 2 Paroxysmal Sweats: 3 Orientation: 0-Oriented Tacttile Disturbances: 3-Moderate Itch/Numb/Burn Auditory Disturbances: 2-Mild Harshness/Frighten Visual Disturbances: 0-None Headache: 0-None Present CIWA-Ar Total Score: 16 S Progress Note (SOAP) Subjective: Body Aches, Anxious, Chills, Sweating, Fatigue. Objective: PT. A & O X 2 (UNCERTAIN ABOUT CURRENT DAY / DATE). PT. OBSERVED AMBULATING ON UNIT. NO ACUTE DISTRESS. 08/03/17 12:34 Vital Signs Temperature 98.8 F 08/03/17 09:44 Pulse Rate 75 08/03/17 09:44 Respiratory Rate 18 08/03/17 09:44 Blood Pressure 105/85 08/03/17 09:44 O2 Sat by Pulse Oximetry (%) Laboratory Tests 08/01/17 08/01/17 08/02/17 06:30 23:00 06:00 WBC 6.3 RBC 4.78 Hgb 12.7 Hct 38.9 MCV 81.4 MCH 26.5 MCHC 32.5 RDW 14.4 Plt Count 213 D MPV 8.4 Sodium Potassium Chloride Carbon Dioxide Anion Gap BUN Creatinine Creat Clearance w eGFR Random Glucose Calcium Total Bilirubin AST ALT Alkaline Phosphatase Total Protein Albumin Urine Color Yellow Urine Appearance Clear Urine pH 6.0 Ur Specific [place] 1.011 Urine Protein Negative Urine Glucose (UA) Negative Urine Ketones Negative Urine Blood Negative Urine Nitrite Negative Urine Bilirubin Negative Urine Urobilinogen Negative Ur Leukocyte Esterase Negative RPR Titer HIV 1&2 Antibody Screen Negative HIV P24 Antigen Negative 08/02/17 08/02/17 06:00 06:00 WBC RBC Hgb Hct MCV MCH MCHC RDW Plt Count MPV Sodium 142 Potassium 3.8 Chloride 105 Carbon Dioxide 31 Anion Gap 6 L BUN 14 Creatinine 0.8 Creat Clearance w eGFR > 60 Random Glucose 87 Calcium 8.5 Total Bilirubin 0.7 D AST 29 ALT 31 D Alkaline Phosphatase 112 D Total Protein 7.7 Albumin 3.7 Urine Color Urine Appearance Urine pH Ur Specific [place] Urine Protein Urine Glucose (UA) Urine Ketones Urine Blood Urine Nitrite Urine Bilirubin Urine Urobilinogen Ur Leukocyte Esterase RPR Titer Nonreactive HIV 1&2 Antibody Screen HIV P24 Antigen LABS NOTED. Assessment: 08/03/17 12:34 WITHDRAWAL SYMPTOMS. Plan: CONTINUE DETOX.
[2017-08-03] MEDS: chlordiazePOXIDE 5 MG CAPSULE PO SCH ×2 (17:25→22:08)
[2017-08-03] MEDS: MIRTAZAPINE 15 MG TABLET (FP) PO SCH (22:08)
[2017-08-03] MEDS: THIAMINE HCL 100 MG TABLET (FP) PO SCH (22:08)
[2017-08-04] MEDS: chlordiazePOXIDE 5 MG CAPSULE PO SCH ×2 (06:23→10:57)
[2017-08-04] MEDS ORDERED: METHADONE HCL 40 MG DISPERSABLE TABLET ONE (06:24)
[2017-08-04] MEDS ORDERED: METHADONE HCL 10 MG TABLET ONE (06:24)
[2017-08-04] MEDS: METHADONE 120 MG, METHADONE 30 MG PO SCH (06:24)
[2017-08-04] MEDS: PRENATAL VITAMINS W/ FOLIC ACID TABLET (FP) PO SCH (10:56)
[2017-08-04] MEDS: NICOTINE 21 MG/24 HOURS TOPICAL PATCH TD SCH (10:56)
--- NOTE | 2017-08-04 15:04 | PN ---
[facility] Progress Note (SOAP) Subjective: Nausea, sweating, anxious Objective: 08/04/17 15:03 Last Vital Signs Temp Pulse Resp BP Pulse Ox 96.4 F L 98 H 20 112/69 08/04/17 13:24 08/04/17 13:24 08/04/17 13:24 08/04/17 13:24 Laboratory Tests 08/01/17 08/01/17 08/02/17 06:30 23:00 06:00 WBC 6.3 RBC 4.78 Hgb 12.7 Hct 38.9 MCV 81.4 MCH 26.5 MCHC 32.5 RDW 14.4 Plt Count 213 D MPV 8.4 Sodium Potassium Chloride Carbon Dioxide Anion Gap BUN Creatinine Creat Clearance w eGFR Random Glucose Calcium Total Bilirubin AST ALT Alkaline Phosphatase Total Protein Albumin Urine Color Yellow Urine Appearance Clear Urine pH 6.0 Ur Specific [place] 1.011 Urine Protein Negative Urine Glucose (UA) Negative Urine Ketones Negative Urine Blood Negative Urine Nitrite Negative Urine Bilirubin Negative Urine Urobilinogen Negative Ur Leukocyte Esterase Negative RPR Titer HIV 1&2 Antibody Screen Negative HIV P24 Antigen Negative 08/02/17 08/02/17 06:00 06:00 WBC RBC Hgb Hct MCV MCH MCHC RDW Plt Count MPV Sodium 142 Potassium 3.8 Chloride 105 Carbon Dioxide 31 Anion Gap 6 L BUN 14 Creatinine 0.8 Creat Clearance w eGFR > 60 Random Glucose 87 Calcium 8.5 Total Bilirubin 0.7 D AST 29 ALT 31 D Alkaline Phosphatase 112 D Total Protein 7.7 Albumin 3.7 Urine Color Urine Appearance Urine pH Ur Specific [place] Urine Protein Urine Glucose (UA) Urine Ketones Urine Blood Urine Nitrite Urine Bilirubin Urine Urobilinogen Ur Leukocyte Esterase RPR Titer Nonreactive HIV 1&2 Antibody Screen HIV P24 Antigen Labs noted Assessment: 08/04/17 15:04 Withdrawal symptoms Plan: Continue detox Encouraged PO hydration (water)
[2017-08-04] MEDS: chlordiazePOXIDE HCL 10 MG CAPSULE PO SCH ×2 (17:14→22:30)
[2017-08-04] MEDS: THIAMINE HCL 100 MG TABLET (FP) PO SCH (22:30)
[2017-08-04] MEDS: MIRTAZAPINE 15 MG TABLET (FP) PO SCH (22:30)
[2017-08-05] MEDS ORDERED: METHADONE HCL 40 MG DISPERSABLE TABLET ONE (04:07)
[2017-08-05] MEDS ORDERED: METHADONE HCL 10 MG TABLET ONE (04:07)
[2017-08-05] MEDS: chlordiazePOXIDE HCL 10 MG CAPSULE PO SCH (05:57)
[2017-08-05] MEDS: METHADONE 120 MG, METHADONE 30 MG PO SCH (05:57)
[2017-08-05 09:18] VITALS: BP 108/70; PULSE 90; TEMP 97
[2017-08-05] MEDS: PRENATAL VITAMINS W/ FOLIC ACID TABLET (FP) PO SCH (09:30)
[2017-08-05] MEDS: NICOTINE 21 MG/24 HOURS TOPICAL PATCH TD SCH (09:31)
--- NOTE | 2017-08-05 11:55 | DS ---
[facility] Detox Discharge Summary Admission Date: 08/01/17 Discharge Date: 08/05/17 - History Pertinent Past History: MMTP Hep C - Physical Exam Results Vital Signs: Vital Signs Temperature 97.0 F L 08/05/17 09:18 Pulse Rate 90 08/05/17 09:18 Respiratory Rate 20 08/05/17 09:18 Blood Pressure 108/70 08/05/17 09:18 O2 Sat by Pulse Oximetry (%) Pertinent Admission Physical Exam Findings: withdrawal sx Vital Signs Temperature 97.0 F L 08/05/17 09:18 Pulse Rate 90 08/05/17 09:18 Respiratory Rate 20 08/05/17 09:18 Blood Pressure 108/70 08/05/17 09:18 O2 Sat by Pulse Oximetry (%) - Treatment Hospital Course: Detox Protocol Followed, Detoxed Safely, Responded well, Discharged Condition Good Patient has Accepted a Rehab Referral to: O/P treatment program - Medication Discharge Medications: Ambulatory Orders Mirtazapine [Remeron -] 15 mg PO HS #30 tablet 02/21/17 - AMA Did Patient Leave Against Medical Advice: No
== END 2017-08-05 09:33 | disposition home or self-care (01) | DRG 773 ==
LOC: YASAS 12:22 → Y3N 15:57
PROVIDERS: ADMIT Internal Medicine; ATTEND Internal Medicine
PROC: HZ2ZZZZ Detoxification Services for Substance Abuse Treatment (ICD-10-PCS; principal; 2017-08-01)
DX: F10.230 Alcohol dependence with withdrawal, uncomplicated (principal); F11.20 Opioid dependence, uncomplicated; F13.230 Sedative, hypnotic or anxiolytic dependence with withdrawal, uncomplicated; F14.20 Cocaine dependence, uncomplicated; F17.210 Nicotine dependence, cigarettes, uncomplicated; F33.9 Major depressive disorder, recurrent, unspecified; J45.20 Mild intermittent asthma, uncomplicated; B18.2 Chronic viral hepatitis C
CPT/HCPCS: 36415; 80053; 81003; 85027; 86593; 87389; 93005; 93010